=== PATIENT | female | born 1980 | race Caucasian/White ===

== ENCOUNTER 2022-02-23 14:40 | Emergency (ER) | payer OTHER, SELFPAY ==
--- NOTE | 2022-02-23 14:43 | ED.FEMALEGU ---
HPI - Female Genitourinary General Chief complaint: Urogenital-Female Stated complaint: uti complaint Time Seen by Provider: 02/23/22 14:43 Source: patient Mode of arrival: ambulatory Limitations: no limitations History of Present Illness HPI Narrative: Ms. Lr is a 42-year-old female patient presenting to the clinic today with complaints of possible urinary tract infection. She reports she has had pain in the bladder and urinary frequency/urgency x1 week. She has taken 2 days worth of Azo but has discontinued. She reports now that she is starting to have some left-sided flank pain. Denies any vaginal discharge or any new sexual partners. She is currently on control and Lexapro daily. Related Data Home Medications Medication Instructions Recorded Confirmed drospirenone 3 mg-ethinyl 1 tablet PO DAILY 02/23/22 02/23/22 estradiol 0.02 mg tablet (Loryna (28)) escitalopram oxalate 20 mg tablet 20 mg PO DAILY 02/23/22 02/23/22 Allergies Allergy/AdvReac Type Severity Reaction Status Date / Time No Known Allergies Allergy Verified 02/23/22 14:50 Review of Systems Review of Systems: Pertinent positives per HPI. Patient denies any fever, chills, rash, headache, visual changes, dizziness, cough, runny nose, sore throat, shortness of breath, chest pain, palpitations, nausea, vomiting, diarrhea, constipation, abdominal pain PMFSH Comments At the time of my signature, I reviewed and agree with the nursing past medical, surgical, social, and family history. There is no relevant family history pertinent to the patient complaint. Exam Narrative: General: Well-developed, well nourished, in no apparent distress. Head: Normocephalic, atraumatic. Cardio: Regular rate and rhythm, s1 and s2 normal, no murmur appreciated. Resp: Clear to auscultation bilaterally, no rhonchi, rales, wheezing or rubs. Abdomen: Soft, pliable, bowel sounds present in all quadrants,tender to palpation over the suprapubic bladder no organomegly, no CVAT tenderness. Course Course Emergency Course: Portions of this record may have been created with voice recognition software. Level of Care: Express Care Visit Vital Signs Vital signs: Vital signs reviewed MDM - Female Genitourinary MDM Narrative Medical decision making narrative: At the time of visit patient is resting comfortably on the exam table. I suspect the patient has acute cystitis. I will give a prescription for some Macrobid and some Pyridium. Supportive measures were discussed with the patient she voiced understanding of discharge instructions and agrees to treatment plan. Differential Diagnosis Differential diagnosis: Likely urinary tract infection, vaginitis (Pyelonephritis) and cystitis Discharge Plan Discharge Clinical Impression: Acute cystitis Patient Disposition: Home, Self-Care Condition: Stable Instructions: Antibiotic Form, Urinary Tract Infection in Women (ED) Additional Instructions: Urine also shows trace of leukocytes. We will send for culture Take Macrobid twice daily x5 days May take Pyridium as needed for pain-this will cause your urine to turn bright orange. Increase fluids and stay well hydrated Wipe front to back. May use wet wipes. Avoid tub baths If sexually active- pee before and after intercourse. Wear cotton panties Avoid tight clothing up against the genitals Follow up with your PCP in 1 week if symptoms persist. Prescriptions: New nitrofurantoin monohyd/m-cryst [Macrobid] 100 mg capsule 100 mg PO Q12H 5 Days Qty: 10 0RF Rx Instructions: must administer with a meal/food phenazopyridine [Pyridium] 200 mg tablet 200 mg PO TID PRN (Reason: pain) Qty: 6 0RF No Action escitalopram oxalate 20 mg tablet 20 mg PO DAILY drospirenone-ethinyl estradiol [Loryna (28)] 3-0.02 mg tablet 1 tablet PO DAILY Follow-up/Referrals: PHYSICIAN,GRADER TENDER [Primary Care Provider] - Time o
[2022-02-23 14:51] VITALS: BP 129/80; PULSE 87; RESP 18; TEMP 36.5; O2SAT 99
== END 2022-02-23 15:05 | disposition home or self-care (01) ==
PROVIDERS: Emergency Provider Nurse Practitioner Family
DX: N30.00 Acute cystitis without hematuria (principal); F41.9 Anxiety disorder, unspecified; F32.A Depression, unspecified
CPT/HCPCS: 81003; 87086; 99213; G0463

== ENCOUNTER 2022-02-24 17:55 | Emergency (ER) | payer OTHER, SELFPAY ==
[2022-02-24 18:13] VITALS: BP 138/77; PULSE 91; RESP 18; TEMP 37.1; O2SAT 100
--- NOTE | 2022-02-24 18:15 | ED.GENADULT ---
HPI - General Adult General Chief complaint: Upper Respiratory Infection Stated complaint: Sore Throat,Sinus,Headache,Diarrhea Time Seen by Provider: 02/24/22 18:15 Source: patient, RN notes reviewed and old records reviewed Mode of arrival: ambulatory Limitations: no limitations History of Present Illness HPI narrative: 42-year-old female presents to the [facility] with complaints of sinuses, headache, diarrhea and body aches since yesterday. Diagnosed with a UTI yesterday, Started on Macrobid yesterday. Denies fevers. Denies abdominal pain. Related Data Home Medications Medication Instructions Recorded Confirmed drospirenone 3 mg-ethinyl 1 tablet PO DAILY 02/23/22 02/24/22 estradiol 0.02 mg tablet (Loryna (28)) escitalopram oxalate 20 mg tablet 20 mg PO DAILY 02/23/22 02/24/22 Allergies Allergy/AdvReac Type Severity Reaction Status Date / Time No Known Allergies Allergy Verified 02/24/22 18:20 Review of Systems Review of Systems: All systems reviewed & are unremarkable except as noted in HPI and below Constitutional: Constitutional: Reports as per HPI, Reports no additional constitutional complaints, Reports body ache(s), Denies chills, Denies fever(s) and Reports headache(s) Eyes: Eyes: Reports no additional eye complaints ENT: Reports as per HPI and Reports nasal congestion Cardiovascular: Cardiovascular: Reports no additional cardiovascular complaints Respiratory: Respiratory: Reports no additional respiratory complaints Gastrointestinal: Gastrointestinal: Reports no additional gastrointestinal complaints Musculoskeletal: Musculoskeletal: Reports no additional musculoskeletal complaints Integumentary/Breasts: Skin/Breast: Reports system reviewed and no additional complaints, except as docu Neurologic: Reports system reviewed and no additional complaints, except as documented Psychiatric: Psychiatric: Reports no additional psychiatric complaints Allergic/Immunologic: Allergic/Immunologic: Reports no additional allergic/immunologic complaints PMFSH Comments At the time of my signature, I reviewed and agree with the nursing past medical, surgical, social, and family history. There is no relevant family history pertinent to the patient complaint. Exam Const: General: healthy appearing, no acute distress and alert Nutritional Appearance: well nourished Orientation/consciousness: patient oriented x3 Limitations: no limitations HENMT: Head: normal to inspection Ears: external ears normal, TM's normal bilaterally and EAC's normal General nose exam: Normal external nose present and Normal nares present Face and sinus: normal facial exam Mouth: Yes Normal oral and palatal mucosa present, Yes lip normal and Yes moist mucous membranes Throat: posterior oropharynx normal and uvula midline Eyes: General: appearance normal, both eyes and all related structures Conjunctivae: conjunctivae normal Pupils: Equal, round and reactive pupils present Neck: Neck: normal visual inspection, no lymphadenopathy and no meningeal signs Chest: Chest palpation & inspection: normal inspection of the chest Resp: Effort & Inspection: normal respiratory effort and no use of accessory muscles Auscultation: clear to auscultation bilaterally, no crackles, no rales, no rhonchi and no wheezes Cardio: Rate: regular rate Rhythm: regular rhythm GI: GI Palp: Yes Soft to palpation and No Tenderness to palpation present (GI) Back/Spine/Pelvis: Cervical Spine: normal cervical lordosis Thoracic/Lumbar Spine: thoracic and lumbar spine normal to inspection Skin: General skin exam: normal color Rashes: no rashes Wounds: no wounds Neuro: General: patient oriented x3, moves all extremities, no meningeal signs and no focal motor deficits Cranial nerves: Yes Equal, round and reactive pupils present Speech: normal speech Gait exam (Neuro): Normal gait present Extrem: General: normal to inspection, full ROM and capillary refill
[2022-02-24 19:40] LABS: SARS-CoV-2 RNA PCR Negative
== END 2022-02-24 18:49 | disposition home or self-care (01) ==
PROVIDERS: Emergency Provider Nurse Practitioner
DX: J06.9 Acute upper respiratory infection, unspecified (principal); Z20.822 Contact with and (suspected) exposure to COVID-19; F41.9 Anxiety disorder, unspecified; F32.A Depression, unspecified
CPT/HCPCS: 87426; 99213; C9803; G0463; U0003; U0005

== ENCOUNTER 2023-03-05 12:38 | Emergency (ER) | payer OTHER, SELFPAY ==
[2023-03-05 12:44] VITALS: BP 135/71; PULSE 84; RESP 18; TEMP 36.2; O2SAT 100
--- NOTE | 2023-03-05 12:47 | ED.URI ---
HPI - URI/Sore Throat General Chief Complaint: Upper Respiratory Infection Stated Complaint: Cough,Congestion Time Seen by Provider: 03/05/23 12:47 Source: patient Mode of arrival: ambulatory Limitations: no limitations History of Present Illness HPI Narrative: 43 yo F presents with c/o nasal congestion, sinus pressure, cough for 3 wks. Reports some chest congestion. No SOB. Afebrile. Taking mucinex with no relief. 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 Denies wheezing. All systems reviewed and negative except as noted above. Related Data Home Medications Medication Instructions Recorded Confirmed drospirenone 3 mg-ethinyl 1 tablet PO DAILY 02/23/22 03/05/23 estradiol 0.02 mg tablet (Loryna (28)) escitalopram oxalate 20 mg tablet 20 mg PO DAILY 02/23/22 03/05/23 Allergies Allergy/AdvReac Type Severity Reaction Status Date / Time No Known Allergies Allergy Verified 03/05/23 12:42 Review of Systems Review of Systems: CONSTITUTIONAL: Denies fever, chills, or sweats. EYES: Denies visual changes, redness, or discharge. ENT: Reports rhinorrhea, congestion, sinus pressure. Denies sore throat, or otalgia. CARDIOVASCULAR: Denies chest pain, palpitations, or edema. RESPIRATORY: Reports cough. Denies dyspnea. GASTROINTESTINAL: Denies abdominal pain, nausea, vomiting, or diarrhea. GENITOURINARY: Denies dysuria or hematuria. SKIN: Denies rash or itching. MUSCULOSKELETAL: Denies back pain, joint pain, or myalgia. NEUROLOGIC: Denies headache, numbness, or weakness. PSYCHIATRIC: Denies anxiety or depression. All other systems reviewed are negative, except as documented in HPI. PMFSH Comments At time of signature, agree with nursing past medical, surgical, social and family history. There is no relevant family history pertinent to the presenting complaint. Exam Narrative: GENERAL: This is a well-nourished, well-developed patient, in no apparent distress. HEAD: normocephalic, atraumatic. EYES: PERRL. Sclera clear/white. Vision is grossly intact. EARS: External ears normal, auditory canals clear and without drainage, TMs normal without perforation. Hearing grossly intact. NOSE: External nose normal with moderate congestion, erythema and swelling to both nares. bilateral sinus tenderness. THROAT: Mucous membranes moist, posterior pharynx clear. NECK: Neck supple, non-tender without lymphadenopathy, masses or thyromegaly. CARDIOVASCULAR: Regular rate and rhythm without murmurs, gallops, or rubs. RESPIRATORY: Clear to auscultation. Breath sounds equal bilaterally. No wheezes, rales, or rhonchi. SKIN: warm, Dry, intact with no suspicious lesions or rash, good texture and turgor. NEURO: awake, alert, and oriented to person, place and time. There were no obvious focal neurologic abnormalities. EXTREMITIES: No joint tenderness, effusion, or edema noted. Course Course Level of Care: Express Care Visit Vital Signs Vital signs: Vital Signs Temperature 36.2 C L 03/05/23 12:44 Pulse Rate 84 03/05/23 12:44 Respiratory Rate 18 03/05/23 12:44 Blood Pressure 135/71 03/05/23 12:44 Pulse Oximetry 100 03/05/23 12:44 Oxygen Delivery Room Air 03/05/23 12:44 Temperature 36.2 C L 03/05/23 12:44 Pulse Rate 84 03/05/23 12:44 Respiratory Rate 18 03/05/23 12:44 Blood Pressure 135/71 03/05/23 12:44 Pulse Oximetry 100 03/05/23 12:44 Oxygen Delivery Room Air 03/05/23 12:44 Reviewed MDM - URI/Sore Throat MDM Narrative Medical decision making narrative: Will prescribe antibiotic to treat bacterial sinusitis due to duration of symptoms and exam findings. Will treat cough with steroids. Patient is aware of diagnosis, understands and agrees to treatment plan. Anticipatory guidance given. Patient agrees to follow-up as directed and is aware of reasons to seek care at the emergency department. Portions of this record may have been created with voice recognition softw
== END 2023-03-05 12:58 | disposition home or self-care (01) ==
PROVIDERS: Emergency Provider Nurse Practitioner Family
DX: J20.9 Acute bronchitis, unspecified (principal); J30.9 Allergic rhinitis, unspecified; F41.9 Anxiety disorder, unspecified; F32.A Depression, unspecified
CPT/HCPCS: 99213; G0463

== ENCOUNTER 2023-07-15 17:25 | Emergency (ER) | payer OTHER, SELFPAY ==
[2023-07-15 17:37] VITALS: BP 134/89; PULSE 70; RESP 18; TEMP 36.8; O2SAT 100
--- NOTE | 2023-07-15 17:38 | ED.URI ---
HPI - URI/Sore Throat General Chief Complaint: Upper Respiratory Infection Stated Complaint: sorethroat,nasal drainage Time Seen by Provider: 07/15/23 17:38 Source: patient Mode of arrival: ambulatory Limitations: no limitations History of Present Illness HPI Narrative: Susie is a 43-year-old female patient presenting to the clinic today with complaints of sore throat nasal drainage. She reports a few weeks ago she was treated for a sinus infection. States that she finished all the antibiotics at that time. Has a 12 day history of sore throat. Also reports some nasal congestion that has recently started back up. Denies any sinus pain MD elicited complaint: sore throat and nasal congestion Related Data Home Medications Medication Instructions Recorded Confirmed escitalopram oxalate 20 mg tablet 10 mg PO DAILY 02/23/22 07/15/23 drospirenone 3 mg-ethinyl tablet 07/15/23 07/15/23 estradiol 0.02 mg tablet (Loryna (28)) Allergies Allergy/AdvReac Type Severity Reaction Status Date / Time No Known Allergies Allergy Verified 07/15/23 17:40 Review of Systems Review of Systems: Pertinent positives per HPI. Patient denies any fever, chills, rash, headache, visual changes, dizziness, cough, shortness of breath, chest pain, palpitations, nausea, vomiting, diarrhea, constipation, abdominal pain, or any urinary issues. PMFSH Comments At the time of my signature, I reviewed and agree with the nursing past medical, surgical, social, and family history. There is no relevant family history pertinent to the patient complaint. Exam Narrative: General: Well-developed, well nourished, in no apparent distress Head: Normocephalic, atraumatic Eyes: Pupils equally round and reactive to light bilaterally, EOM intact, sclera and conjunctive clear, no discharge, lids normal Ears: TMs intact and clear, ear canals clear, no drainage, grossly hearing normal. Nose: Nares patent, clear nasal discharge, moderate inflammation, no sinus tenderness. Mouth: Oral pharynx without lesions or masses, good dentition, MMM. Neck: Supple, trachea midline, no enlargement of anterior or posterior cervical nodes, no thyroid masses or goiter palpable. Cardio: Regular rate and rhythm, s1 and s2 normal, no murmur appreciated. Resp: Clear to auscultation bilaterally, no rhonchi, rales, wheezing or rubs Course Course Emergency Course: Portions of this record may have been created with voice recognition software. Level of Care: Express Care Visit Vital Signs Vital signs: Vital signs reviewed MDM - URI/Sore Throat MDM Narrative Medical decision making narrative: At the time of visit patient is resting comfortably on the exam table. Patient appears to be nontoxic. Labs: Strep test was negative in the clinic today. We will send for culture. Plan: I suspect patient has URI with pharyngitis. Will send in prescription for prednisone to help with nasal congestion. Supportive measures were discussed with the patient and they voiced understanding discharge instructions and agrees to treatment plan. Return precautions reviewed Differential Diagnosis Differential diagnosis: Likely upper respiratory infection, otitis media, sinusitis, viral infection, bronchitis, influenza, pharyngitis and other (COVID) Discharge Plan Discharge Clinical Impression: Upper respiratory infection Qualifiers: URI type: unspecified viral URI Qualified Code(s): J06.9 - Acute upper respiratory infection, unspecified Pharyngitis Qualifiers: Pharyngitis/tonsillitis etiology: unspecified etiology Qualified Code(s): J02.9 - Acute pharyngitis, unspecified Patient Disposition: Home, Self-Care Condition: Stable Instructions: Antibiotic Form, Pharyngitis (ED), Upper Respiratory Infection (ED) Additional Instructions: Strep test was negative in the clinic today. We will send strep for culture. Take prescription medications only as prescribed-prednisone
== END 2023-07-15 18:03 | disposition home or self-care (01) ==
PROVIDERS: Emergency Provider Nurse Practitioner Family
DX: J06.9 Acute upper respiratory infection, unspecified (principal)
CPT/HCPCS: 87081; 87880; 99213; G0463

== ENCOUNTER 2023-08-05 12:37 | Emergency (ER) | payer OTHER, SELFPAY ==
[2023-08-05 12:57] VITALS: BP 126/80; PULSE 100; RESP 16; TEMP 37.1; O2SAT 100
--- NOTE | 2023-08-05 13:01 | ED.URI ---
HPI - URI/Sore Throat General Chief Complaint: Upper Respiratory Infection Stated Complaint: runny nose,headache,nausea Time Seen by Provider: 08/05/23 13:02 Source: patient, RN notes reviewed and old records reviewed Mode of arrival: ambulatory Limitations: no limitations History of Present Illness HPI Narrative: 43 [facility] complaints of cough congestion with nausea and fevers for the past 24 hours with fevers up to 102F. 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 Patient reports that she has had 1 month of sinus problems with drainage, sinus pressure and frontal headaches. Patient reports that she has been taking Ibuprofen for her fever and discomforts. MD elicited complaint: cough and sore throat Pertinent past history: sinusitis Onset (ago): day(s) (24 hours fever 1 month of sinus congestion and drainage pressure and headaches) Severity: moderate Description of mucous: yellow Able to tolerate fluids by mouth: Yes Treatments prior to arrival: ibuprofen Related Data Home Medications Medication Instructions Recorded Confirmed escitalopram oxalate 20 mg tablet 10 mg PO DAILY 02/23/22 07/15/23 drospirenone 3 mg-ethinyl tablet 07/15/23 07/15/23 estradiol 0.02 mg tablet (Loryna (28)) Allergies Allergy/AdvReac Type Severity Reaction Status Date / Time No Known Allergies Allergy Verified 07/15/23 17:40 Review of Systems Review of Systems: CONSTITUTIONAL: Reports malaise, chills, sweats, or fever. EYES: Denies visual changes, redness, or discharge. ENT: Reports rhinorrhea, congestion, sinus pain, no otalgia and no sore throat. CARDIOVASCULAR: Denies chest pain, palpitations, or edema. RESPIRATORY: Reports cough.? Denies dyspnea. GASTROINTESTINAL: Denies abdominal pain,positive nausea, no vomiting, diarrhea SKIN: Denies rash or itching. MUSCULOSKELETAL: Denies myalgia. NEUROLOGIC: Denies headache. All systems reviewed & are unremarkable except as noted in HPI and below PMFSH Past Medical History Medical History (Updated 08/05/23 @ 14:46 by Deloris Perdue NP) Anxiety and depression Hypertension Social History Social History (Updated 08/05/23 @ 14:55 by Deloris Perdue NP) Smoking status: Never smoker Alcohol intake: current Alcohol use details: social Substance use type: does not use Living arrangements: with family Gender identity (if verbalized by the patient): Female Comments At time of signature, agree with nursing past medical, surgical, social and family history. There is no relevant family history pertinent to the presenting complaint Exam Narrative: GENERAL: Well-appearing, well-nourished, and in no acute distress. HEAD: Normocephalic EYES: PERRLA, conjunctivae clear ENT: Nares clear, turbinates edematous and erythematous, clear yellowish discharge. Mucous membranes moist. TM pearly ruiz with dull light reflex bilaterally; no tragal tenderness. Oropharynx erythematous without lesions. Tonsils not enlarged and without exudate, no drooling, no hoarseness, no trismus, uvula midline.post nasal drainage. NECK: Supple. No lymphadenopathy CHEST: Clear to auscultation, breath sounds equal. No wheezing, rhonchi, rales, or stridor. No respiratory distress, speaks in full sentences. cough,SAO2 100% on room air HEART: Regular rate and rhythm. No murmur heard. SKIN: Warm, dry, no rash. NEURO: Alert and oriented x3. PSYCH: Normal mood and affect Course Course Emergency Course: Patient is aware of diagnosis, understands and agrees to treatment plan.? Anticipatory guidance given.? Patient agrees to follow-up as directed and is aware of reasons to seek care at the emergency department. Portions of this record may have been created with voice recognition software Level of Care: Express Care Visit Vital Signs Vital signs: Vital Signs Temperature
== END 2023-08-05 13:46 | disposition home or self-care (01) ==
PROVIDERS: Emergency Provider Registered Nurse; PCP Family Medicine
DX: J01.40 Acute pansinusitis, unspecified (principal); Z20.822 Contact with and (suspected) exposure to COVID-19; I10 Essential (primary) hypertension; F41.9 Anxiety disorder, unspecified; F32.A Depression, unspecified
CPT/HCPCS: 87426; 87804; 99213; G0463

== ENCOUNTER 2025-03-02 12:06 | Outpatient (CLI) | payer OTHER, SELFPAY ==
--- OUTSIDE RECORDS SUMMARY | 2025-03-01 10:00 | XMS_ITS ---
Author Organization [facility] Address [address] [place] [address] Care Team Providers Care Rehabilitation Assistant Name Role Phone SarabiaTer Primary Care Provider Miranda Herrera Unavailable [phone] Allergies No Known Allergies Reason For Referral Reason PCP Diagnosis 1 Bipolar 2 disorder ( F31.81) Referral Organization [facility] Referring Provider First Name Miranda Referring Provider Last Name Javier Referring Provider Speciality Psychiatry Referred Provider [facility] Referral Priority Routine REASON FOR VISIT New Psych Eval Medications Medication SIG (Take, Route, Frequency, Duration) Notes Start Date End Date Status lamoTRIgine 100 MG 1 tablet Orally Once a day Active Atomoxetine HCl 80 MG 1 capsule in the m orning Orally Once a day Active Manvel Carbonate ER 300 MG 1 tablet at bedtime Orally Once a day Active Caplyta 42 MG 1 capsule Orally Onc e a day Active Social History Tobacco Use: Social History Observation Description Date Details (start date - stop date) Never Smoker NA - NA Tobacco Control (Standard) Question Answer Notes Tobacco use: Nonsmoker Problems Problem Type SNOMED Code ICD Code Onset Dates Problem Status W/U Status Risk Notes Problem Bipolar 2 disorder (67198386) Bipolar 2 disorder (F31.81) Active confirmed Problem Attention deficit hyperactivity disorder (092936600) ADHD (attention deficit hyperactivity disorder), combined type (F90.2) Active confirmed Vital Signs Weight 125 lbs 03/01/2025 Height 5ft 8in in 03/01/2025 BMI 19 kg/m2 03/01/2025 Blood pressure systolic 118 mm Hg 03/01/20 25 Blood pressure diastolic 86 mm Hg 025 Heart Rate 90 /min 03/01/2025 Temperature 98.7 degrees Fahrenheit 03/01/20 25 Encounters Encounter Location Date Provider Diagnosis [facility] [place] [address] 03/01/2025 Miranda Herrera Bipolar 2 disorder F31.81 and ADHD (attention deficit hyperactivity disorder), combined type F90.2 Assessments Encounter Date Diagnosis (ICD Code) Assessment Notes Treatment Notes Treatment Clinical Notes Section Notes 03/01/2025 Bipolar 2 disorder (ICD-10 - F31.81) Continue medications as prescribed - educated patient/guardian on adverse effects, risks and benefits, as well as alternative treatments. Mood stabilizer education - reviewed side effects which may include decreases WBCs, SJS, hepatotoxicity. Possible harm; need to notify provider if planning or experiencing . Continue Lamotrigine as prescribed. Reviewed purpose (mood stability, reduce depression, and help with irritability), benefits, and risks - including sedation, nausea, rash - benign or serious. A serious rash could cause shedding of all skin and even become fatal. Stop taking medication immediately if a rash occurs and seek emergency care. Notify our office as well. If you ever miss 4 or more consecutive days of taking this medication, please let the office know. The prescriber may need to restart this medication at 25 mg daily and titrate up as tolerated. Antipsychotics education - reviewed side effects which may include metabolic syndrome, movement disorders (EPS & TD), sedation, and cardiac arrhythmias. Possible harm; need to notify provider if planning or experiencing . The patient was advice to take lamotrigine as prescribed the patient was instructed not to deviate from the prescription dosages. Stop lamotrigine at the first sign of rash. Patient was insisted to inform office if any of the serious side effect develops. Continue lithium. Take as prescribed. Discussed uses for bipolar depression. Reviewed risks associated like toxicity and water intake, cardiovascular changes. Educated on monitoring weight, kidney function and therapeutic blood trough levels. Manvel lab level ordered. Consume well balanced diet with consistent sodium intake. Consume plenty of fruits/vegetables, healthy grains/whole grains, unsaturated/healthy fats. Maintain hydration. Exercise regularly - Develop an exercise routine. 30 minutes of moderate exercise (walking at a brisk pace) 5 times per week is recommended. You should work hard enough to cause a sweat but still be able to talk with others while exercising. Exercise improves overall health - improves blood pressure and blood sugar, helps control weight, reduces stress, and improves mood. Practice stress reduction techniques, such as guided imagery, journaling, aromatherapy, acupuncture/acupressu re, deep breathing, etc. Practice healthy sleep hygiene - maintain regular routine, no caffeine after 1PM, no exercise 1-2 hours prior to bedtime, keep bedroom dark and cool, no TV or electronics while in bed. Consider melatonin as needed. Consider cognitive behavioral therapy for insomnia (CBT-I). Manage co-morbid conditions as advised. Continue monitoring symptoms - report persistent or worsening/concerning symptoms to the office or go to the ER. For MENTAL HEALTH CRISIS, please reach out to 988 (National Suicide and Crisis Lifeline), 911, go to the emergency department, or contact the [facility] Crisis Unit/Team. Manvel Lab: Have lithium level drawn after taking prescribed dose for 7 consecutive days. You may eat and drink prior to lab draw but do NOT take your lithium until the blood has been collected. You may take your other medications as usual and RESTART the lithium after the blood is drawn. 03/01/2025 ADHD (attention deficit hyperactivity disorder), combined type (ICD-10 - F90.2) Continue Atomoxetine. Discussed healthy habits to help reduce symptoms. Medications as prescribed. Risks vs benefits discussed at length. Possible side effects reviewed. All questions answered. Parent denies any known family history of heart disease. Take as prescribed. Reviewed purpose (improve attention and focus), benefits and risks including high heart rate, high blood pressure, poor appetite, worsening irritability, cyrus, insomnia and anxiety. Patient cautioned that ADHD medications have been associated with an increased risk of cardiovascular disease. Educated on taking medication as prescribed. Medications may need to be tapered down or even stopped based on cardiovascular parameters. Refer to package/pharmacy insert for a full listing of side effects. 03/01/2025 Other The plan was discussed with the patient/guardian. The treatment recommendations were discussed in depth, including pros and cons of each treatment option, reasonable alternates, reasons, potential benefits, potential risks, interactions, and side-effects of all medications, including pertinent Black box warnings and the use of off label medications. The treatment plan was formulated after verbal agreement of the patient/guardian. Patient/guardian were educated about the importance of medication adherence/compliance. Patient/guardian was advised to contact provider if any medication side effects are noted. The Patient/Guardian asked appropriate questions, verbalized understanding of the treatment, and decided to accept the treatment and continue being followed. Alternatives and expected course without treatment were reviewed. The Patient/Guardian is aware of the need to contact the office or return for an earlier appointment if any problems or concerns arise. A safety plan was discussed with the patient/guardian. The patient/guardian has been explained that for emergencies, if new symptoms arise or existing symptoms worsen, suicidal ideation, homicidal ideation, high risk behaviors, manic symptoms, psychotic symptoms, physical symptoms, or any other symptoms that may be dangerous to self or others, the patient is recommended to seek immediate help by calling the [place] crisis line, 911, or going to the nearest emergency room. Patient/guardian verbalized ability and intention to follow with the safety plan. No acute safety concerns. Patient's/guardian's preferences addressed, prefers plan as outlined. Greater than 50% of time spent on coordination and counseling where psychopharmacology as well as psychotherapeutic interventions were discussed along with review of treatments in the past. Encouraged healthy lifestyle choices, including eating healthy foods, taking part in physical activity as tolerated and safe, and maintaining good sleep hygiene. Patient advised to follow up with PCP for chronic medical conditions. No additional questions. May self-administer or be administered own oral medication per [place] Protocols. Provided informed consent with understanding of side effects, risks and benefits as well as alternative treatments as previously discussed and with the above recommended medications and other aspects of the treatment program. Agrees to return sooner if symptoms worsen or suicidal or homicidal ideations occur. Support and education provided concerning illness and treatment plan, risks and benefits, pt verbalized understanding of the same and agreeable Engaged individual in suicide risk assessment. Provided risk based intervention to ensure safety and linkage to ongoing services. Follow up in 2 weeks Plan Of Treatment Medication Medication Name Sig Start Date Stop Date Notes lamoTRIgine 100 MG 1 tablet Orally Once a day Atomoxetine HCl 80 MG 1 capsule in the m orning Orally Once a day Manvel Carbonate ER 300 MG 1 tablet at bedtime Orally Once a day Caplyta 42 MG 1 capsule Orally Once a day Treatment Notes Assessment Notes Bipolar 2 disorder Continue medications as prescribed - educated patient/guardian on adverse effects, risks and benefits, as well as alternative treatments. Mood stabilizer education - reviewed side effects which may include decreases WBCs, SJS, hepatotoxicity. Possible harm; need to notify provider if planning or experiencing . Continue Lamotrigine as prescribed. Reviewed purpose (mood stability, reduce depression, and help with irritability), benefits, and risks - including sedation, nausea, rash - benign or serious. A serious rash could cause shedding of all skin and even become fatal. Stop taking medication immediately if a rash occurs and seek emergency care. Notify our office as well. If you ever miss 4 or more consecutive days of taking this medication, please let the office know. The prescriber may need to restart this medication at 25 mg daily and titrate up as tolerated. Antipsychotics education - reviewed side effects which may include metabolic syndrome, movement disorders (EPS & TD), sedation, and cardiac arrhythmias. Possible harm; need to notify provider if planning or experiencing . The patient was advice to take lamotrigine as prescribed the patient was instructed not to deviate from the prescription dosages. Stop lamotrigine at the first sign of rash. Patient was insisted to inform office if any of the serious side effect develops. Continue lithium. Take as prescribed. Discussed uses for bipolar depression. Reviewed risks associated like toxicity and water intake, cardiovascular changes. Educated on monitoring weight, kidney function and therapeutic blood trough levels. Manvel lab level ordered. Consume well balanced diet with consistent sodium intake. Consume plenty of fruits/vegetables, healthy grains/whole grains, unsaturated/healthy fats. Maintain hydration. Exercise regularly - Develop an exercise routine. 30 minutes of moderate exercise (walking at a brisk pace) 5 times per week is recommended. You should work hard enough to cause a sweat but still be able to talk with others while exercising. Exercise improves overall health - improves blood pressure and blood sugar, helps control weight, reduces stress, and improves mood. Practice stress reduction techniques, such as guided imagery, journaling, aromatherapy, acupuncture/acupressure, deep breathing, etc. Practice healthy sleep hygiene - maintain regular routine, no caffeine after 1PM, no exercise 1-2 hours prior to bedtime, keep bedroom dark and cool, no TV or electronics while in bed. Consider melatonin as needed. Consider cognitive behavioral therapy for insomnia (CBT-I). Manage co-morbid conditions as advised. Continue monitoring symptoms - report persistent or worsening/concerning symptoms to the office or go to the ER. For MENTAL HEALTH CRISIS, please reach out to 988 (National Suicide and Crisis Lifeline), 911, go to the emergency department, or contact the [facility] Crisis Unit/Team. Manvel Lab: Have lithium level drawn after taking prescribed dose for 7 consecutive days. You may eat and drink prior to lab draw but do NOT take your lithium until the blood has been collected. You may take your other medications as usual and RESTART the lithium after the blood is drawn. ADHD (attention deficit hype ractivity disorder), combined type Continue Atomoxetine. Discussed healthy habits to help reduce symptoms. Medications as prescribed. Risks vs benefits discussed at length. Possible side effects reviewed. All questions answered. Parent denies any known family history of heart disease. Take as prescribed. Reviewed purpose (improve attention and focus), benefits and risks including high heart rate, high blood pressure, poor appetite, worsening irritability, cyrus, insomnia and anxiety. Patient cautioned that ADHD medications have been associated with an increased risk of cardiovascular disease. Educated on taking medication as prescribed. Medications may need to be tapered down or even stopped based on cardiovascular parameters. Refer to package/pharmacy insert for a full listing of side effects. Other The plan was discussed with the patient/guardian. The treatment recommendations were discussed in depth, including pros and cons of each treatment option, reasonable alternates, reasons, potential benefits, potential risks, interactions, and side-effects of all medications, including pertinent Black box warnings and the use of off label medications. The treatment plan was formulated after verbal agreement of the patient/guardian. Patient/guardian were educated about the importance of medication adherence/compliance. Patient/guardian was advised to contact provider if any medication side effects are noted. The Patient/Guardian asked appropriate questions, verbalized understanding of the treatment, and decided to accept the treatment and continue being followed. Alternatives and expected course without treatment were reviewed. The Patient/Guardian is aware of the need to contact the office or return for an earlier appointment if any problems or concerns arise. A safety plan was discussed with the patient/guardian. The patient/guardian has been explained that for emergencies, if new symptoms arise or existing symptoms worsen, suicidal ideation, homicidal ideation, high risk behaviors, manic symptoms, psychotic symptoms, physical symptoms, or any other symptoms that may be dangerous to self or others, the patient is recommended to seek immediate help by calling the [place] crisis line, 911, or going to the nearest emergency room. Patient/guardian verbalized ability and intention to follow with the safety plan. No acute safety concerns. Patient's/guardian's preferences addressed, prefers plan as outlined. Greater than 50% of time spent on coordination and counseling where psychopharmacology as well as psychotherapeutic interventions were discussed along with review of treatments in the past. Encouraged healthy lifestyle choices, including eating healthy foods, taking part in physical activity as tolerated and safe, and maintaining good sleep hygiene. Patient advised to follow up with PCP for chronic medical conditions. No additional questions. May self-administer or be administered own oral medication per [place] Protocols. Provided informed consent with understanding of side effects, risks and benefits as well as alternative treatments as previously discussed and with the above recommended medications and other aspects of the treatment program. Agrees to return sooner if symptoms worsen or suicidal or homicidal ideations occur. Support and education provided concerning illness and treatment plan, risks and benefits, pt verbalized understanding of the same and agreeable Engaged individual in suicide risk assessment. Provided risk based intervention to ensure safety and linkage to ongoing services. Follow up in 2 weeks Pending Test Test Name Order Date CBC With Differential/Platelet* 03/01/20 Manvel (Eskalith(R)), Serum 03/01/2025 TSH+Free T4* 03/01/2025 CMP 14 Comprehensive Metabolic Panel* Referrals Referral Date Details 03/01/2025 03/01/2025, PCP Next Appt Details Follow Up: 2 Weeks, Reason: Provider Name:Miranda Herrera, 03/15/2025 01:00:00 PM, [address] [facility], [place], [address], Progress Notes * Susie SNOW BDOB: [id number] (45 yo F)Acc No.[id number]:03/01/2025 Patient: Susie BURGER Provider: Fabián Herrera APN :1980 A ge:45 Y S ex:Female Date:03/01/2025 Address:[address] [place], [place] [id number] Pcp:Tre Sarabia Subjective: * Chief Complaints: * N ew Psych Eval * HPI: I nterim History: Emergency room visit N o. W as hospitalized N o.? D epression Screening: PHQ-9 L ittle interest or pleasure in doing things S everal days, F eeling down, depressed, or hopeless S everal days, T rouble falling or staying asleep, or sleeping too much N ot at all, F eeling tired or having little energy S everal days, P oor appetite or overeating N ot at all, F eeling bad about yourself or that you are a failure, or have let yourself or your family down M ore than half the days, T rouble concentrating on things, such as reading the newspaper or watching television M ore than half the days, M oving or speaking so slowly that other people could have noticed; or the opposite, being so fidgety or restless that you have been moving around a lot more than usual N ot at all, T houghts that you would be better off or of hurting yourself in some way N ot at all, T otal Score 7 , I nterpretation M ild Depression. G AD-7 Screenin. Feeling nervous, anxious, or on edge : , Several days-1.?2. Not being able to stop or control worrying : , Several days-1. 3 . Worrying too much about different things : , Several days-1. 4 . Trouble sleeping/relaxing : , Nearly every day-3. 5 . Being so restless that it is hard to sit still : , Several days-1. 6 . Becoming easily annoyed or irritable : , Not at all-0. 7 . Feeling afraid, as if something awful might happen : , Not at all-0. G AD-7 Score T otal score: 7 . I nterpretation: 5 -9: Mild Anxiety. M ood Disorder Questionnaire 12-10-21: Please answer each question to the best of your ability. Questions P lease answer each question to the best of your ability. H as there ever been a time period when you were not your usual self and..., Y ou felt so good or hyper that other people thought you were not your normal self or you were so hyper that you got into trouble? N o ., Y ou were so irritable that you shouted at people or started fights or arguments? Y es ., Y ou got much less sleep than usual and found that you didn't really miss it? Y es ., Y ou felt much more self-confident than usual? N o ., Y ou were more talkative or spoke much faster than usual? N o ., T houghts raced through your head or you couldn't slow your mind down? Y es ., Y ou were so easily distracted by things around you that you had trouble concentrating or staying on track? Y es ., Y ou had more energy than usual? N o ., Y ou were more active or did many more things than usual? N o ., Y ou were more social or outgoing than usual, for example, you telephoned friends in the middle of the night? N o ., Y ou were more interested in sex than usual? N o ., Y ou did things that were usual for you or that other people might have thought were excessive, foolish, or risky??Yes ., S pending money got you or your family in trouble? Y es ., I f you checked YES to more than one of the above, have several of these ever happened during the same period of time??Yes ., H ow much of a problem did any of these cause you - like being unable to work; having family, money or legal troubles; getting into arguments or fights? M inor problem .. S creening: [place] Suicide Severity Rating Scale (LF) D o you want to initiate with S creener form, 1 . Wish to be : Have you wished you were or wished you could go to sleep and not wake up? N o, 2 . Suicidal Thoughts: Have you actually had any thoughts of killing yourself? N o, 6 . Suicide Behavior Question: Have you ever done anything,started to do anything, or prepared to end your life? N o, I nterpretation: L ow Risk. P [facility] follow-up: Action Plans for Clinical Quality Measures: B reast Cancer Screening: D iscussed need for breast cancer screening. Patient declined., C ervical Cancer Screening: D iscussed need for cervical cancer screening. Patient declined., H IV Screening: Discussed need for HIV screening. Patient declined.. . 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 The patient presents via t elephone encounter to establish care with a new psychiatric provider. Symptoms/CC: I am trying to find a new provider. I have really high moods and really low lows. I could not pay attention in school as a child. ADHD evaluation done in 08/2024. I thought I had anxiety. I had an ADHD test done and I have ADHD. Mood swings and highs and lows. I was diagnosed with ADHD and bipolar 2. I am only on Atomoxetine 80mg now. I was on vyvanse but that was making me more anxious and it made my heart rate and BP go up. The bipolar has been hard to treat. I feel like I have tried all of the medications. Expectations of this visit: Medication Management/ therapy referral M edication management Onset: I have had mental health symptoms my whole life. Frequency: Feel like I was having mood swings all the time over the past 6 months. Stressors/Precipitating factors: S on fell 33 feet off of a tree; Was fired from her job but found a new job at [employer]. Goals: To be able to handle everyday life a little bit better, to be more happy, be a better partner and daughter Strengths: Positivity, caring Past Psychiatric History Past psychiatric history: (dx and onset) ADHD, SYLVAIN, MDD, bipolar 2- patient reports I have definitely been manic multiple times. I used to be very bad at spending money. There have been times I have not been sleeping at all. Inpatient/outpatient treatment: D enies inpatient hospitalization Psychotherapy: denies Past psychiatric medications: M ethylphenidate, Mydayis, Vyvanse, Quelbree, Strattera, Adderall, Auvelity, sertraline, Lamictal, citalopram, Vraylar, lithium, Caplyta, escitalorapm (apathy), Abilify (GI upset), Wellbutrin (side effects at higher doses), fluoxetine (ineffective), Latuda Current psychiatric medications: L ithium ER 300mg, Caplyta 42mg, lamotrigine 100mg, atomoxetine 80mg Medication adherence/efficacy C ompliant with medications Side effects: d enies Suicidal ideations/attempts: D enies Non-suicidal self-injurious behavior: denies Homicidal ideations: d enies Prior violence/aggression: D enies Psychiatric Review of Systems Sleep: (hours per night): 6-8 hours a night Sleeping too much or not enough?(Missed sleep and felt good?) H as had periods of time in the past where she missed sleep and still felt good. Appetite: g ood Binging/restricting/purging: d enies Obsessions: d enies Compulsions: d enies Depression: (0-10): 5 -6/10 Hopeless/Helpless: E ndorses Interest level: p oor Motivation: p oor Concentration/distractible: p oor Energy Level: g ood Anxiety: (0-10): 2-3/10 Worries: A bout children and about her boyfriend Panic Attacks: E ndorses 2 panic attacks for the first time in 15 years about 3 weeks ago Racing thoughts: e ndorses Anger/irritability: E ndorses irritability Trauma: E ndorses Nightmares/flashbacks: D enies Mood swings: e ndorses Suicidal Ideation: d enies Homicidal Ideation: d enies Indiscretion/Inhibition: denies R isk taking/impulsivity: e ndorses Grandiosity: E ndorses Talkativeness:endorses Hallucinations: denies Paranoia: d enies Delusions: d enies Past Medical History Medical diagnoses:denies Medical Concerns: d enies Other Medications: d enies Allergies: d enies Head Injury/ Loss of Consciousness: d enies Seizures: d enies Therapist: Becka murphy currently in therapy- declined referral at this time Primary Care Physician: Gosia rose- will send referral Substance Use: Alcohol: d enies Marijuana: d enies Fentanyl: d enies Cocaine: d enies Meth: d enies Heroin: d enies LSD/PCP: d enies Caffeine: d enies OTC/Prescriptions: PDMP: R eviewed no concerns Family medical History: Cancer runs in the family Family Psychiatric History: Mother: mother- possible bipolar, anxiety, depression. 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 * ROS: P sych ROS: Constitutional A ll systems negative unless indicated otherwise.. E yes D enies. E ars/Nose/Mouth/Throat D enies. R espiratory D enies.?Allergic/Immunologic D enies. C ardiovascular D enies, D enies history of cardiac problems. G I D enies. G U D enies. M usculoskeletal D enies. N eurological D enies. I ntegumentary D enies. E ndocrine D enies. H ematological/Lymphatic D enies, D enies bleeding or bruising. P sych D enies SI/HI/AH/VH. ? * PSYCH ROS2: Depressive symptoms R eports depressed mood,Reports anhedonia, . A dmits E levated mood symptoms. A dmits m ood swings. T houghts of self harm D enies. D enies H omicidal thoughts. H yperactivity A dmits. I nattention A dmits. B ehavior concerns D enies. D isruptive behavior D enies. O bsessive behavior D enies. C ompulsive behavior D enies. P aranoia D enies. D ifficulty concentrating A dmits. A dmits A nxiety. D enies A uditory/visual hallucinations. D enies D elusions. A dmits D epressed mood. D enies D ifficulty sleeping. D enies E ating disorder. D enies L oss of appetite. D enies M ental or Physical abuse. D enies S ubstance abuse. D enies S uicidal thoughts. ? * Medical History: * Surgical History: N o Surgical History documented. * Hospitalization/Major Diagno stic Procedure: N o Hospitalization History. * Family History: F ather: alive. M other: alive. 1 brother(s) - healthy. 1 son(s) , 1 daughter(s) - healthy. . * Social History: P rimary Social History: L iving Arrangement L iving Arrangement: I ndependent Living, I s this a supportive environment? Y es. A lcohol Use A lcohol Use Frequency: M onthly or less. I llicit Substance Usage I llicit Substance Usage: N o. 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 S betsy Question Alcohol Screening H ow may times in the past year have you had (4 for women, or 5 for men) or more drinks in a day? 0 . T obacco Use: T obacco Control (Standard) T obacco use: N onsmoker. M iscellaneous: M ethod of learning P referred method of learning: D iscussion. * Medications: T akingLithium Carbonate ER 300 MG Tablet Extended Release 1 tablet at bedtime Orally Once a day Caplyta 42 MG Capsule 1 capsule Orally Once a day lamoTRIgine 100 MG Tablet 1 tablet Orally Once a day Atomoxetine HCl 80 MG Capsule 1 capsule in the morning Orally Once a day Medication List reviewed and reconciled with the patientTaking Manvel Carbonate ER 300 MG Tablet Extended Release 1 tablet at bedtime Orally Once a day Taking Caplyta 42 MG Capsule 1 capsule Orally Once a day Taking lamoTRIgine 100 MG Tablet 1 tablet Orally Once a day Taking Atomoxetine HCl 80 MG Capsule 1 capsule in the morning Orally Once a day Medication List reviewed and reconciled with the patient * Allergies: N .K.D.A.no[Allergies Verified] Objective: * Vitals: I nitials: krs, Wt:125, Ht: 5ft 8in, BMI:19, BP:118/86, HR:90, Temp:98.7, LMP: 02/2025, Pain scale:0. * Examination: M ental Status Exam: SENSORIUM AND COGNITION A lert, Oriented to Person, Oriented to Place, Oriented to Time, Oriented to Situation. ATTENTION AND CONCENTRATION N o deficits. APPEARANCE Phone interview - unable to determine appearance.. ATTITUDE AND BEHAVIOR C ooperative, Receptive. MEMORY I mmediate, Recent, Remote. EYE CONTACT Phone interview. AFFECT P dhiraj interview-unable to assess. MOOD E uthymic. SPEECH QUANTITY A ppropriate. SPEECH QUALITY A ppropriate volume. THOUGHT PROCESS C oherent and goal directed. THOUGHT CONTENT A ppropriate - WNL, No evidence of delusional content. LANGUAGE A ppropriate- WNL. MOTOR ACTIVITY P dhiraj interview. SUICIDAL IDEATION D enies suicidal ideation. HOMICIDAL IDEATION D enies homicidal ideation. HALLUCINATIONS D enies hallucinations. INSIGHT G ood. JUDGMENT G ood. Assessment: * Assessment: 1. B ipolar 2 disorder - F31.81 (Primary) 2 . A DHD (attention deficit hyperactivity disorder), combined type - F90.2 Plan: * Treatment: 2. A DHD (attention deficit hyperactivity disorder), combined type Continue Atomoxetine HCl Capsule, 80 MG, 1 capsule in the morning, Orally, Once a day. Notes: Continue Atomoxetine. Discussed healthy habits to help reduce symptoms. Medications as prescribed. Risks vs benefits discussed at length. Possible side effects reviewed. All questions answered. Parent denies any known family history of heart disease. Take as prescribed. Reviewed purpose (improve attention and focus), benefits and risks including high heart rate, high blood pressure, poor appetite, worsening irritability, cyrus, insomnia and anxiety. Patient cautioned that ADHD medications have been associated with an increased risk of cardiovascular disease. Educated on taking medication as prescribed. Medications may need to be tapered down or even stopped based on cardiovascular parameters. Refer to package/pharmacy insert for a full listing of side effects. 3. O thers Notes: The plan was discussed with the patient/guardian. The treatment recommendations were discussed in depth, including pros and cons of each treatment option, reasonable alternates, reasons, potential benefits, potential risks, interactions, and side-effects of all medications, including pertinent Black box warnings and the use of off label medications. The treatment plan was formulated after verbal agreement of the patient/guardian. Patient/guardian were educated about the importance of medication adherence/compliance. Patient/guardian was advised to contact provider if any medication side effects are noted. The Patient/Guardian asked appropriate questions, verbalized understanding of the treatment, and decided to accept the treatment and continue being followed. Alternatives and expected course without treatment were reviewed. The Patient/Guardian is aware of the need to contact the office or return for an earlier appointment if any problems or concerns arise. A safety plan was discussed with the patient/guardian. The patient/guardian has been explained that for emergencies, if new symptoms arise or existing symptoms worsen, suicidal ideation, homicidal ideation, high risk behaviors, manic symptoms, psychotic symptoms, physical symptoms, or any other symptoms that may be dangerous to self or others, the patient is recommended to seek immediate help by calling the [facility] crisis line, 911, or going to the nearest emergency room. Patient/guardian verbalized ability and intention to follow with the safety plan. No acute safety concerns. Patient's/guardian's preferences addressed, prefers plan as outlined. Greater than 50% of time spent on coordination and counseling where psychopharmacology as well as psychotherapeutic interventions were discussed along with review of treatments in the past. Encouraged healthy lifestyle choices, including eating healthy foods, taking part in physical activity as tolerated and safe, and maintaining good sleep hygiene. Patient advised to follow up with PCP for chronic medical conditions. No additional questions. May self-administer or be administered own oral medication per [facility] Protocols. Provided informed consent with understanding of side effects, risks and benefits as well as alternative treatments as previously discussed and with the above recommended medications and other aspects of the treatment program. Agrees to return sooner if symptoms worsen or suicidal or homicidal ideations occur. Support and education provided concerning illness and treatment plan, risks and benefits, pt verbalized understanding of the same and agreeable Engaged individual in suicide risk assessment. Provided risk based intervention to ensure safety and linkage to ongoing services. Follow up in 2 weeks * Recommended Wellness and Pre vention Guidelines: * S tatus A lert L ast Done N ext Due A ction Taken N ONCOMPLIANT B reast cancer screening - 0 03/01/2025 - - N ONCOMPLIANT C ervical cancer screening - 0 03/01/2025 - - N ONCOMPLIANT H IV screening - 0 03/01/2025 - - * Procedure Codes: * Preventive Medicine: Counseling: Radha ELI: Elliot atient counselled on the dangers of tobacco use and urged to quit. 0 03/01/2025 .. * Follow Up: 2 Weeks * * Sign off status: Completed true * Provider: Fabián Herrera APN Date: 0 03/01/2025 Generated for Fabio bernal/[place]il[place]/Avrilitting on: 0 03/02/2025 01:09 PM CDT History and Physical Notes * HPI (History of Present Illness) Category Sub-Category Detail Notes Category Not es Interim History Was hospitalized No Emergency room visit No Depression Screening PHQ-9 Little inte rest or pleasure in doing things: Several days Feeling down, depressed, or hopeless: Se veral days Trouble falling or staying asleep, or sl eeping too much: Not at all Feeling tired or having little energy: S everal days Poor appetite or overeating: Not at all Feeling bad about yourself o r that you are a failure, or have let yourself or your family down: More than half the days Trouble concentrating on thi ngs, such as reading the newspaper or watching television: More than half the days Moving or speaking so slowly that other people could have noticed; or the opposite, being so fidgety or restless that you have been moving around a lot more than usual: Not at all Thoughts that you would be b allyssa off or of hurting yourself in some way: Not at all Total Score: 7 Interpretation: Mild Depression SYLVAIN-7 Screening 1. Feeling nervous, anxious, or on edg e :, Several days-1 2. Not being able to stop or control wor rying :, Several days-1 3. Worrying too much about different thi ngs :, Several days-1 4. Trouble sleeping/relaxing :, Nearly e very day-3 5. Being so restless that it is hard to sit still :, Several days-1 6. Becoming easily annoyed or irritable :, Not at all-0 7. Feeling afraid, as if something awful might happen :, Not at all-0 SYLVAIN-7 Score Total score:: 7 Interpretation: 5-9: Mild Anxiety Screening [place] Suicide Sev erity Rating Scale (LF) Do you want to initiate with: Screener form 1. Wish to be : Have you wished you were or wished you could go to sleep and not wake up?: No 2. Suicidal Thoughts: Have you actually had any thoughts of killing yourself?: No 6. Suicide Behavior Question: Have you ever done anything,started to do anything, or prepared to end your life?: No Interpretation:: Low Risk Mood Disorder Questionnaire 12-10-21 Questions Please answer each question to the best of your ability.: Has there ever been a time period when you were not your usual self and... You felt so good or hyper th at other people thought you were not your normal self or you were so hyper that you got into trouble?: No . You were so irritable that y ou shouted at people or started fights or arguments?: Yes . You got much less sleep than usual and found that you didn't really miss it?: Yes . You felt much more self-confident than u sual?: No . You were more talkative or spoke much fa ster than usual?: No . Thoughts raced through your head or you couldn't slow your mind down?: Yes . You were so easily distracte d by things around you that you had trouble concentrating or staying on track?: Yes . You had more energy than usual?: No . You were more active or did many more th ings than usual?: No . You were more social or outg oing than usual, for example, you telephoned friends in the middle of the night?: No . You were more interested in sex than usu al?: No . You did things that were usu al for you or that other people might have thought were excessive, foolish, or risky?: Yes . Spending money got you or your family in trouble?: Yes . If you checked YES to more t vazquez one of the above, have several of these ever happened during the same period of time?: Yes . How much of a problem did an y of these cause you - like being unable to work; having family, money or legal troubles; getting into arguments or fights?: Minor problem . Preventative Health and Wellness follow-up Action Plans for Clinical Quality Measures: Breast Cancer Screening:: Discussed need for breast cancer screening. Patient declined. . Cervical Cancer Screening:: Discussed need for cervical cancer screening. Patient declined. HIV Screening:: Discussed need for HIV s creening. Patient declined. Examination Category Sub-Category Detail Notes Category Not es Mental Status Exam SENSORIUM AND COGNITION Alert , Oriented to Person, Oriented to Place, Oriented to Time, Oriented to Situation ATTENTION AND CONCENTRATION No deficits APPEARANCE Phone interview - un able to determine appearance. ATTITUDE AND BEHAVIOR Cooperative, Medical Insurance Biller tive MEMORY Immediate, Recent, R emote EYE CONTACT Phone interview AFFECT Phone interview-unab le to assess MOOD Euthymic SPEECH QUANTITY Appropriate SPEECH QUALITY Appropriate volume THOUGHT PROCESS Coherent and goal di rected THOUGHT CONTENT Appropriate - WNL, N o evidence of delusional content MOTOR ACTIVITY Phone interview SUICIDAL IDEATION Denies suicidal idea tion HOMICIDAL IDEATION Denies homicidal lamar ation HALLUCINATIONS Denies hallucination s INSIGHT Good JUDGMENT Good LANGUAGE Appropriate- WNL Consultation Request Notes Referral Date Referring Provider Referred Provider Not es 03/01/2025 Miranda Herrera , PCP
[2025-03-02 13:06] LABS: Hematocrit 40.1 % (37.0-47.0); Hemoglobin 13.2 g/dL (12.0-15.0); Immature Granulocyte Percent A 0.1 % (0-0.5); Lymphocytes Absolute Auto 2.45 K/mm3 (0.9-3.2); Mean Corpuscular HGB Conc 32.9 g/dl (32-36); Mean Corpuscular Hemoglobin 31.1 pg (26-34); Mean Corpuscular Volume 94.4 fl (80-100); Nucleated Red Blood Cells Absolute Auto 0.000 K/mm3 (0.0-0.012); Nucleated Red Blood Cells Perc 0.0 % (0.0-0.2); Platelet Count Result 260 k/mm3 (150-375); Red Blood Count 4.25 M/mm3 (4.2-5.4); White Blood Count 7.8 K/mm3 (4.5-10.0)
--- OUTSIDE RECORDS SUMMARY | 2025-03-02 13:09 | XMS_ITS | Patient Health Record ---
Author Organization [facility] Address [address] [place] [address] Care Team Providers Care Clinical Appeals Auditor Name Role Phone SarabiaTre Primary Care Provider [phone] Javier, Miranda Unavailable [phone] Allergies No Known Allergies Reason For Referral Reason PCP Diagnosis 1 Bipolar 2 disorder ( F31.81) Referral Organization [facility] Referring Provider First Name Miranda Referring Provider Last Name Javier Referring Provider Speciality Psychiatry Referred Provider Specialty Behavioral [facility] Referral Priority Routine Medications Medication SIG (Take, Route, Frequency, Duration) Notes Start Date End Date Status lamoTRIgine 100 MG 1 tablet Orally Once a day Active Atomoxetine HCl 80 MG 1 capsule in the m orning Orally Once a day Active [place] Carbonate ER 300 MG 1 tablet at [...] Problem Status W/U Status Risk Notes Problem Attention deficit hyperactivity disorder (269249472) ADHD (attention deficit hyperactivity disorder), combined type (F90.2) Active confirmed Problem Bipolar 2 disorder (42497413) Bipolar 2 disorder (F31.81) Active confirmed Vital Signs Heart Rate 90 /min 03/01/2025 Temperature 98.7 degrees Fahrenheit 03/01/2025 Blood pressure diastolic 86 mm Hg 03/01/2025 Height 5ft 8in in 03/01/2025 Blood pressure systolic 118 mm Hg 03/01/2025 Weight 125 lbs 03/01/2025 BMI 19 kg/m2 03/01/2025 Encounters Encounter Location Date Provider Diagnosis [address] [place] [address] 03/01/2025 Miranda Herrera Bipolar 2 disorder F31.81 and ADHD (attention deficit hyperactivity disorder), combined type F90.2 [facility] [address] [place] [address] 03/01/2025 Miranda Herrera Assessments Encounter Date Diagnosis (ICD Code) Assessment [...] kidney function and therapeutic blood trough levels. [place] lab level ordered. Consume well balanced diet [...] HEALTH CRISIS, please reach out to [phone] ([employer] Suicide and Crisis Lifeline), 911, go to the emergency department, or contact the [facility] Crisis Unit/Team. [place] Lab: Have lithium level drawn after taking [...] to seek immediate help by calling the [place] crisis line, 911, or going to the [...] or be administered own oral medication per [place] Protocols. Provided informed consent with understanding of [...] up in 2 weeks Plan Of Treatment Pending Test Test Name Order Date CBC With Differential/Platelet* 03/01/20 25 [place] (Eskalith(R)), Serum 03/01/2025 TSH+Free T4* 03/01/2025 CMP 14 Comprehensive Metabolic Panel* Next Appt Details Provider Name:Miranda Herrera, 03/15/2025 01:00:00 PM, [address] [facility] [address], [place], [address], Insurance Providers Payer Name Payer Address Payer Phone Subscriber Number Group Number Insured Name Patient Relationship to Insured Coverage Start Date Coverage End Date MEDICAID [address] [place] [phone] [id number] Susie Snow Self - patient is the insured 5 [employer] [address] [place] [phone] [id number] Susie Snow Self - patient is the insured 5 Medical (General) History Medical History History ICD Code bipolar disorder 2 adhd combo type generalized anxiety disorder
--- OUTSIDE RECORDS SUMMARY | 2025-03-02 13:10 | XMS_ITS | Patient Health Record ---
Author Organization [facility] As Blip Address [address] [facility] [address] [place] [address] Care Team Providers Care Gasket Supervisor Name Role Phone Annelise Garcia Unavailable [phone] Az Baeza MD Unavailable Unavailable Sulaiman Decker Unavailable [phone] Payal Sesay Unavailable [phone] Allergies No Known Allergies Results Component Value Reference Range Notes UDT Reviewed date:08/16/2024 02:10:32 PM Interpretation: Performing Lab: Notes/Report: THC N 0 - 50 ng/ml Cocaine N 0 - 300 ng/ml Amphetamine N 0 - 1000 ng/ml Buprenorphine (BUP) N 0 - 10 ng/ml Secobarbital (Bar) N 0 - 300 ng/ml Oxazepam (BZO) N 0 - 300 ng/ml 9-pbyjyzsmjy-7,5-ciboidrt-2,3-diphenylpyrrolidine (NIVIA P) N 0 - 300 ng/ml Methamphetamine (MET) N 0 - 1000 ng/ml Methylenedioxymethamphetamine (MDMA) N 0 - 500 ng/ml Morphine (MOP 300/[id number]) N 0 - 300 ng/ml Methadone (MTD) N 0 - 300 ng/ml Phencyclidine (PCP) N 0 - 25 ng/ml Nortriptyline (TCA) N 0 - 1000 ng/ml Oxycodone N 0 - 300 ng/ml UDT Reviewed date:11/03/2024 12:12:57 PM Interpretation: Performing Lab: Notes/Report: THC n 0 - 50 ng/ml Cocaine n 0 - 300 ng/ml Amphetamine p 0 - 1000 ng/ml Buprenorphine (BUP) n 0 - 10 ng/ml Secobarbital (Bar) n 0 - 300 ng/ml Oxazepam (BZO) n 0 - 300 ng/ml 8-qpeuzzdwxo-5,5-rvuxsngm-0,3-diphenylpyrrolidine (NIVIA P) n 0 - 300 ng/ml Methamphetamine (MET) n 0 - 1000 ng/ml Methylenedioxymethamphetamine (MDMA) n 0 - 500 ng/ml Morphine (MOP 300/[id number]) n 0 - 300 ng/ml Methadone (MTD) n 0 - 300 ng/ml Phencyclidine (PCP) n 0 - 25 ng/ml Nortriptyline (TCA) n 0 - 1000 ng/ml Oxycodone n 0 - 300 ng/ml UDT Reviewed date:12/27/2024 03:27:54 PM Interpretation: Performing Lab: Notes/Report: THC N 0 - 50 ng/ml Cocaine N 0 - 300 ng/ml Amphetamine P 0 - 1000 ng/ml Buprenorphine (BUP) N 0 - 10 ng/ml Secobarbital (Bar) N 0 - 300 ng/ml Oxazepam (BZO) N 0 - 300 ng/ml 0-ykjgxkwvgl-9,2-tvxiiwzo-9,3-diphenylpyrrolidine (NIVIA P) N 0 - 300 ng/ml Methamphetamine (MET) N 0 - 1000 ng/ml Methylenedioxymethamphetamine (MDMA) N 0 - 500 ng/ml Morphine (MOP 300/[id number]) N 0 - 300 ng/ml Methadone (MTD) N 0 - 300 ng/ml Phencyclidine (PCP) N 0 - 25 ng/ml Nortriptyline (TCA) N 0 - 1000 ng/ml Oxycodone N 0 - 300 ng/ml Reason For Referral No Information Medications Medication SIG (Take, Route, Frequency, Duration) Notes Start Date End Date Status Ferrous Fumarate 324 (106 Fe) MG Tablet 1 tablet Orally daily; Duration: 90 days 12/29/2024 Active [place] Carbonate ER 300 MG Tablet Extended Release 1 tablet at bedtime Orally Once a day; Duration: 30 days 02/25/2025 Active lamoTRIgine 100 MG Tablet 1 tablet Orall y Once a day; Duration: 90 days 01/09/2025 Active Atomoxetine HCl 80 MG Capsule 1 capsule in the morning Oral Once a day; Duration: 30 days Active Ondansetron 8 MG Tablet Disintegrating 1 tablet on the tongue and allow to dissolve as needed Orally Once a day 01/02/2025 Active Ferrous Fumarate 150 MG Tablet 1 tablet Orally Three times a Week; Duration: 90 days 12/28/2024 Active B-12 2000 MCG Tablet 1 tablet Orally Onc e a day; Duration: 90 days 12/28/2024 12/23/2025 Active Social History Tobacco Use: Social History Observation Description Date Details (start date - stop date) Unknown Sex Assigned At : Social History Observation Description Sex Assigned At Female Social History Miscellaneous: Social Info Question Answer Notes Safety issues: Are there any firearms in the house? No Social History Social Info Question Answer Notes Household: Marital Status: Single Number of Adults in household: 2 Number of Children in Household: 1 Level of Education: Finished High School Drug/Alcohol: Social Info Question Answer Notes Drugs Have you used drugs other than those for medical reasons in the past 12 months? No AUDIT-C (Standard) Did you have a drink containing alcohol in the past year? Yes How often did you have six or more drinks on one occasion in the past year? Never (0 point) How many drinks did you have on a typical day when you were drinking in the past year? 1 or 2 drinks (0 point) How often did you have a drink containing alcohol in the past year? 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 Problems Problem Type SNOMED Code ICD Code Onset Dates Problem Status W/U Status Risk Notes Problem Bipolar 2 disorder (62064198) Bipolar 2 disorder (F31.81) Active confirmed Problem Generalized anxiety disorder (80390175) SYLVAIN (generalized anxiety disorder) (F41.1) Active confirmed Problem Attention deficit hyperactivity disorder (769775209) ADHD (attention deficit hyperactivity disorder), combined type (F90.2) Active confirmed The results indicate severe ADHD-related cognitive impairment, with strong congruence between self-reports and objective cognitive deficits.Medic ation, structured interventions, and environmental modifications will be son to improving daily function.Regul ar follow-up with a clinician is highly recommended to track progress and adjust interventions as needed. Vital Signs Heart Rate 105 /min 12/27/2024 Blood pressure diastolic 72 mm Hg 12/27/2024 Weight-kg 58.06 kg 12/27/2024 Blood pressure systolic 108 mm Hg 12/27/2024 Weight 128 lbs 12/27/2024 Procedures Procedure Date Ordered Date Performed Result Body Sit e ADHD Testing 08/21/2024 08/23/2024 N/A Encounters Encounter Location Date Provider Diagnosis [address] [address] 08/16/2024 Annelise Garcia MDD (major depressiv e disorder), recurrent episode, mild F33.0 and SYLVAIN (generalized anxiety disorder) F41.[address] [facility] [address] [place] [address] 08/23/2024 Sulaiman Decker Lack of concentratio n R41.840 [address] [address] 08/31/2024 Annelise Garcia ADHD (attention deficit hyperactivity disorder), combined type F90.2 ; SYLVAIN (generalized anxiety disorder) F41.1 ; Encounter for screening for depression Z13.31 ; MDD (major depressive disorder), recurrent episode, mild F33.0 and Encounter for screening for cardiovascular disorders Z13.[address] [address] 10/05/2024 Annelise Kurmeir ADHD (attention deficit hyperactivity disorder), combined type F90.2 ; SYLVAIN (generalized anxiety disorder) F41.1 ; Encounter for screening for depression Z13.31 ; MDD (major depressive disorder), recurrent episode, mild F33.0 and Encounter for screening for cardiovascular disorders Z13.[address] [address] 11/03/2024 Annelise Kurilla ADHD (attention deficit hyperactivity disorder), combined type F90.2 ; SYLVAIN (generalized anxiety disorder) F41.1 ; Encounter for screening for depression Z13.31 ; MDD (major depressive disorder), recurrent episode, mild F33.0 and Encounter for screening for cardiovascular disorders Z13.[address] [address] 11/14/2024 Payal Sesay ADHD (attention deficit hyperactivity disorder), combined type F90.2 ; SYLVAIN (generalized anxiety disorder) F41.1 ; MDD (major depressive disorder), recurrent episode, mild F33.0 and Encounter for screening for cardiovascular disorders Z13.6 [facility] [address] [place] [address] 12/27/2024 Annelise Garcia ADHD (attention deficit hyperactivity disorder), combined type F90.2 ; SYLVAIN (generalized anxiety disorder) F41.1 ; MDD (major depressive disorder), recurrent episode, mild F33.0 and Nicotine use Z72.0 [facility] [address] [place] [address] 11/14/2024 Annelise Garcia [facility] [address] [place] [address] 11/23/2024 Payal Sesay ADHD (attention deficit hyperactivity disorder), combined type F90.2 [facility] [address] [place] [address] 11/24/2024 Payal Sesay Depression, unspecified depression type F32.A [place] [address] [facility] [address] [place] [address] 11/24/2024 Payal Sesay MDD (major depressiv e disorder), recurrent episode, mild F33.0 and Depression, unspecified depression type F32.A [facility] [address] [place] [address] 08/21/2024 Annelise Garcia Difficulty concentrating R41.840 [facility] [address] [place] [address] 08/23/2024 Annelise Garcia [facility] [address] [place] [address] 09/01/2024 Annelise Garcia [facility] [address] [place] [address] 09/01/2024 Annelise Garcia [facility] [address] [place] [address] 09/04/2024 Annelise Garcia ADHD (attention deficit hyperactivity disorder), combined type F90.2 [facility] [address] [place] [address] 09/06/2024 Annelise Garcia SYLVAIN (generalized anxiety disorder) F41.1 and ADHD (attention deficit hyperactivity disorder), combined type F90.2 [facility] [address] [place] [address] 09/06/2024 Annelise Kurilla ADHD (attention deficit hyperactivity disorder), combined type F90.2 [facility], [facility] [address] [place] [address] 09/14/2024 Annelise Kurilla [facility], [facility] [address] [place] [address] 09/22/2024 Annelise Kurilla ADHD (attention deficit hyperactivity disorder), combined type F90.2 [facility], [facility] [address] [place] [address] 09/22/2024 Annelise Kurilla ADHD (attention deficit hyperactivity disorder), combined type F90.2 [facility], [facility] [address] [place] [address] 09/25/2024 Annelise Kurilla [facility], [facility] [address] [place] [address] 09/25/2024 Annelise Kurilla ADHD (attention deficit hyperactivity disorder), combined type F90.2 [facility], [facility] [address] [place] [address] 09/26/2024 Annelise Kurilla ADHD (attention deficit hyperactivity disorder), combined type F90.2 [facility], [facility] [address] [place] [address] 09/27/2024 Annelise Kurilla [facility], [facility] [address] [place] [address] 10/02/2024 Annelise Kurilla [facility], [facility] [address] [place] [address] 10/13/2024 Annelise Kurilla ADHD (attention deficit hyperactivity disorder), combined type F90.2 [facility], [facility] [address] [place] [address] 10/13/2024 Annelise Kurilla [facility], [facility] [address] [place] [address] 10/16/2024 Annelise Kurilla [facility], [facility] [address] [place] [address] 10/16/2024 Annelise Kurilla ADHD (attention deficit hyperactivity disorder), combined type F90.2 [facility], [facility] [address] [place] [address] 10/18/2024 Annelise Garcia SYLVAIN (generalized anxiety disorder) F41.1 [facility], [facility] [address] [place] [address] 10/18/2024 Annelise Garcia [facility], [facility] [address] [place] [address] 11/08/2024 Annelise Garcia [facility], [facility] [address] [place] [address] 11/08/2024 Annelise Garcia [facility], [facility] [address] [place] [address] 11/08/2024 Annelise Garcia [facility], [facility] [address] [place] [address] 11/08/2024 Annelise Garcia [facility], [facility] [address] [place] [address] 11/08/2024 Annelise Garcia [facility], [facility] [address] [place] [address] 11/09/2024 Annelise Garcia [facility], [facility] [address] [place] [address] 11/09/2024 Annelise Garcia [facility], [facility] [address] [place] [address] 11/11/2024 Annelise Garcia [facility], [facility] [address] [place] [address] 11/23/2024 Payal Sesay [facility], [facility] [address] [place] [address] 11/23/2024 Payal Sesay ADHD (attention deficit hyperactivity disorder), combined type F90.2 [facility], [facility] [address] [place] [address] 11/23/2024 Payal Sesay [facility], [facility] [address] [place] [address] 11/24/2024 Payal Sesay [facility], [facility] [address] [place] [address] 11/24/2024 Payal Sesay [facility], [facility] [address] [place] [address] 11/29/2024 Payal Sesay [facility], [facility] [address] [place] [address] 11/29/2024 Payal Sesay [facility], [facility] [address] [place] [address] 12/05/2024 Payal Sesay [facility], [facility] [address] [place] [address] 12/06/2024 Payal Sesay ADHD (attention deficit hyperactivity disorder), combined type F90.2 [facility], [facility] [address] [place] [address] 12/11/2024 Payal Sesay ADHD (attention deficit hyperactivity disorder), combined type F90.2 [facility], [facility] [address] [place] [address] 12/12/2024 Payal Sesay [facility], [facility] [address] [place] [address] 12/14/2024 Annelise Garcia [facility], [facility] [address] [place] [address] 12/14/2024 Annelise Garcia [facility], [facility] [address] [place] [address] 12/14/2024 Annelise Garcia MDD (major depressiv e disorder), recurrent episode, mild F33.0 [facility], [facility] [address] [place] [address] 12/18/2024 Annelise Garcia ADHD (attention deficit hyperactivity disorder), combined type F90.2 [facility], [facility] [address] [place] [address] 12/19/2024 Annelisefaustino Garcia ADHD (attention deficit hyperactivity disorder), combined type F90.2 [facility], [facility] [address] [place] [address] 12/26/2024 Annelise Garcia [facility], [facility] [address] [place] [address] 12/28/2024 Annelise Garcia [facility], [facility] [address] [place] [address] 12/28/2024 Annelise Garcia [facility], [facility] [address] [place] [address] 12/31/2024 Annelisefaustino Garcia [facility], [facility] [address] [place] [address] 01/02/2025 Annelisefaustino Garcia [facility], [facility] [address] [place] [address] 01/04/2025 Annelisefaustino Garcia [facility], [facility] [address] [place] [address] 01/04/2025 Annelisefaustino Garcia [facility], [facility] [address] [place] [address] 01/04/2025 Annelisefaustino Garcia [facility], [facility] [address] [place] [address] 01/04/2025 Annelise Garcia [facility], [facility] [address] [place] [address] 01/04/2025 Annelise Kurilla ADHD (attention deficit hyperactivity disorder), combined type F90.2 [facility], [facility] [address] [place] [address] 01/04/2025 Annelisefaustino Garcia [facility], [facility] [address] [place] [address] 01/04/2025 Annelisefaustino Garcia [facility], [facility] [address] [place] [address] 01/04/2025 Annelisefaustino Garcia [facility], [facility] [address] [place] [address] 01/07/2025 Annelise Garcia MDD (major depressiv e disorder), recurrent episode, mild F33.0 [facility], [facility] [address] [place] [address] 01/09/2025 Annelise Kurmeir [facility], [facility] [address] [place] [address] 01/15/2025 Annelise Kurilla ADHD (attention deficit hyperactivity disorder), combined type F90.2 [facility], [facility] [address] [place] [address] 01/21/2025 Annelise Kurilla [facility], [facility] [address] [place] [address] 01/23/2025 Annelise Kurilla ADHD (attention deficit hyperactivity disorder), combined type F90.2 [facility], [facility] [address] [place] [address] 01/25/2025 Annelise Garcia [facility], [facility] [address] [place] [address] 01/25/2025 Annelise Garcia [facility], [facility] [address] [place] [address] 01/25/2025 Annelise Garcia [facility], [facility] [address] [place] [address] 01/25/2025 Annelise Garcia [facility], [facility] [address] [place] [address] 01/27/2025 Annelise Garcia [facility], [facility] [address] [place] [address] 01/28/2025 Annelise Garcia [facility], [facility] [address] [place] [address] 01/29/2025 Annelise Garcia [facility], [facility] [address] [place] [address] 01/29/2025 Annelise Garcia [facility], [facility] [address] [place] [address] 01/31/2025 Annelise Garcia [facility], [facility] [address] [place] [address] 01/31/2025 Annelise Garcia [facility], [facility] [address] [place] [address] 01/31/2025 Annelise Garcia [facility], [facility] [address] [place] [address] 02/01/2025 Annelise Garcia [facility], [facility] [address] [place] [address] 02/01/2025 Annelise Garcia [facility], [facility] [address] [place] [address] 02/01/2025 Annelise Garcia [facility], [facility] [address] [place] [address] 02/05/2025 Annelise Garcia [facility], [facility] [address] [place] [address] 02/05/2025 Annelise Garcia [facility], [facility] [address] [place] [address] 02/05/2025 Annelise Garcia [facility], [facility] [address] [place] [address] 02/05/2025 Annelise Garcia [facility], [facility] [address] [place] [address] 02/06/2025 Annelise Garcia [facility], [facility] [address] [place] [address] 02/06/2025 Annelisefaustino Garcia [facility], [facility] [address] [place] [address] 02/06/2025 Annelise Garcia [facility], [facility] [address] [place] [address] 02/06/2025 Annelise Garcia [facility], [facility] [address] [place] [address] 02/07/2025 Annelise Garcia [facility], [facility] [address] [place] [address] 02/13/2025 Annelise Garcia [facility], [facility] [address] [place] [address] 02/14/2025 Annelise Garcia [facility], [facility] [address] [place] [address] 02/14/2025 Annelise Garcia [facility], [facility] [address] [place] [address] 02/14/2025 Annelise Garcia [facility], [facility] [address] [place] [address] 02/14/2025 Annelise Garcia [facility], [facility] [address] [place] [address] 02/14/2025 Annelise Garcia [facility], [facility] [address] [place] [address] 02/14/2025 Annelise Garcia [facility], [facility] [address] [place] [address] 02/14/2025 Annelise Garcia [facility], [facility] [address] [place] [address] 02/14/2025 Annelise Garcia [facility], [facility] [address] [place] [address] 02/14/2025 Annelise Garcia [facility], [facility] [address] [place] [address] 02/14/2025 Annelise Garcia [facility], [facility] [address] [place] [address] 02/14/2025 Annelise Garcia [facility], [facility] [address] [place] [address] 02/14/2025 Annelise Garcia [facility], [facility] [address] [place] [address] 02/14/2025 Annelise Garcia [facility], [facility] [address] [place] [address] 02/14/2025 Annelise Garcia [facility], [facility] [address] [place] [address] 02/16/2025 Annelise Garcia [facility], [facility] [address] [place] [address] 02/16/2025 Annelise Garcia ADHD (attention deficit hyperactivity disorder), combined type F90.2 [facility], [facility] [address] [place] [address] 02/16/2025 Annelise Garcia [facility], [facility] [address] [place] [address] 02/16/2025 Annelise Garcia [facility], [facility] [address] [place] [address] 02/16/2025 Annelise Garcia [facility], [facility] [address] [place] [address] 02/16/2025 Annelise Garcia [facility], [facility] [address] [place] [address] 02/16/2025 Annelise Garcia [facility], [facility] [address] [place] [address] 02/16/2025 Annelise Garcia [facility], [facility] [address] [place] [address] 02/16/2025 Annelise Garcia [facility], [facility] [address] [place] [address] 02/16/2025 Annelise Kurmeir [facility], [facility] [address] [place] [address] 02/16/2025 Annelise Garcia [facility], [facility] [address] [place] [address] 02/16/2025 Annelise Kurilla ADHD (attention deficit hyperactivity disorder), combined type F90.2 [facility], [facility] [address] [place] [address] 02/18/2025 Annelisefaustino Garcia [facility], [facility] [address] [place] [address] 02/19/2025 Annelisefaustino Garcia [facility], [facility] [address] [place] [address] 02/19/2025 Annelise Garcia [facility], [facility] [address] [place] [address] 02/19/2025 Annelise Garcia [facility], [facility] [address] [place] [address] 02/20/2025 Annelisefaustino Garcia [facility], [facility] [address] [place] [address] 02/20/2025 Annelise Kurilla ADHD (attention deficit hyperactivity disorder), combined type F90.2 [facility], [facility] [address] [place] [address] 02/20/2025 Annelise Garcia [facility], [facility] [address] [place] [address] 02/20/2025 Annelise Kurilla ADHD (attention deficit hyperactivity disorder), combined type F90.2 [facility], [facility] [address] [place] [address] 02/20/2025 Annelisefaustino Garcia [facility], [facility] [address] [place] [address] 02/20/2025 Annelisefaustino Garcia [facility], [facility] [address] [place] [address] 02/20/2025 Annelisefaustino Garcia [facility], [facility] [address] [place] [address] 02/20/2025 Annelise Garcia [facility], [facility] [address] [place] [address] 02/20/2025 Annelise Garcia [facility], [facility] [address] [place] [address] 02/20/2025 Annelise Garcia [facility], [facility] [address] [place] [address] 02/20/2025 Annelise Garcia [facility], [facility] [address] [place] [address] 02/20/2025 Annelise Garcia [facility], [facility] [address] [place] [address] 02/21/2025 Annelise Garcia [facility], [facility] [address] [place] [address] 02/21/2025 Annelise Garcia [facility], [facility] [address] [place] [address] 02/25/2025 Annelise Garcia [facility], [facility] [address] [place] [address] 02/25/2025 Annelise Garcia [facility], [facility] [address] [place] [address] 02/25/2025 Annelise Garcia [facility], [facility] [address] [place] [address] 02/27/2025 Annelise Garcia [facility], [facility] [address] [place] [address] 02/28/2025 Annelise Garcia 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 terminal 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 manager (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) drug therapy Z79.899 [facility], [facility] [address] [place] [address] 02/28/2025 Annelise Garcia [facility], [facility] [address] [place] [address] 03/01/2025 Annelise Garcia [facility], [facility] [address] [place] [address] 03/01/2025 Annelise Garcia Assessments Encounter Date Diagnosis (ICD Code) Assessment Notes Treatment Notes Treatment Clinical Notes Section Notes 08/16/2024 MDD (major depressive disorder), recurrent episode, mild (ICD-10 - F33.0) 08/21/2024 Difficulty concentrating (ICD-10 - R41.840) Patient reporting symptoms consistent with ADHD-including difficulty maintaining focus and concentration for long periods of time, easily distracted, mind/though process wonders during conversation with others, difficulty completing tasks, trouble sitting still for long periods of time. Reports friends and family notice these symptoms and make her aware of them. Remembers noticing symptoms as early as adolescence. 11/23/2024 ADHD (attention deficit hyperactivity disorder), combined type (ICD-10 - F90.2) 11/23/2024 ADHD (attention deficit hyperactivity disorder), combined type (ICD-10 - F90.2) The results indicate severe ADHD-related cognitive impairment, with strong congruence between self-reports and objective cognitive deficits.Medic ation, structured interventions, and environmental modifications will be son to improving daily function.Regul ar follow-up with a clinician is highly recommended to track progress and adjust interventions as needed. 11/24/2024 Depression, unspecified depression type (ICD-10 - F32.A) 11/24/2024 MDD (major depressive disorder), recurrent episode, mild (ICD-10 - F33.0) 11/03/2024 ADHD (attention deficit hyperactivity disorder), combined type (ICD-10 - F90.2) The results indicate severe ADHD-related cognitive impairment, with strong congruence between self-reports and objective cognitive deficits.Medic ation, structured interventions, and environmental modifications will be son to improving daily function.Regul ar follow-up with a clinician is highly recommended to track progress and adjust interventions as needed. Electronic Prior Authorization was requested for Amphetamine-Dextr oamphet ER 10 MG Capsule Extended Release 24 Hour. Provider can order medication once approval received. 10/13/2024 ADHD (attention deficit hyperactivity disorder), combined type (ICD-10 - F90.2) The results indicate severe ADHD-related cognitive impairment, with strong congruence between self-reports and objective cognitive deficits.Medic ation, structured interventions, and environmental modifications will be son to improving daily function.Regul ar follow-up with a clinician is highly recommended to track progress and adjust interventions as needed. 10/16/2024 ADHD (attention deficit hyperactivity disorder), combined type (ICD-10 - F90.2) The results indicate severe ADHD-related cognitive impairment, with strong congruence between self-reports and objective cognitive deficits.Medic ation, structured interventions, and environmental modifications will be son to improving daily function.Regul ar follow-up with a clinician is highly recommended to track progress and adjust interventions as needed. 10/18/2024 SYLVAIN (generalized anxiety disorder) (ICD-10 - F41.1) 10/05/2024 ADHD (attention deficit hyperactivity disorder), combined type (ICD-10 - F90.2) The results indicate severe ADHD-related cognitive impairment, with strong congruence between self-reports and objective cognitive deficits.Medic ation, structured interventions, and environmental modifications will be son to improving daily function.Regul ar follow-up with a clinician is highly recommended to track progress and adjust interventions as needed. Electronic Prior Authorization was requested for Amphetamine-Dextr oamphet ER 10 MG Capsule Extended Release 24 Hour. Provider can order medication once approval received. 08/23/2024 Lack of concentration (ICD-10 - R41.840) Analysis and Recommendations Summary of Findings Cognitive Markers: 9 markers are outside the typical range, suggesting significant cognitive impairments. ASRS Questionnaire: ADHD is indicative, with Part A (11/24) and Part B (06/01) meeting the threshold for ADHD-related behaviors. Cognitive Performance: Severe deficits in planning and working memory. (Percentiles: 0-2) Extreme inattention: High omission errors (100th percentile). Impulsivity: Faster and less accurate responses. Deficits in response inhibition: High error rate in Double Trouble task (100th percentile). Reaction time irregularities: Low reaction time percentiles (0-1), suggesting cognitive impulsivity or processing speed issues. Interpretation The cognitive test results strongly support the self-reported ADHD symptoms. Severe executive dysfunction (planning, inhibition, sustained attention). High impulsivity contributes to rapid, inaccurate responses. Working memory deficits may impair learning and day-to-day functioning. Recommendations 1. Medical & Clinical Interventions Psychiatric Consultation: Given the congruence between cognitive deficits and self-reporting, stimulant or non-stimulant medication should be considered to improve executive function and attention. Neuropsychological Evaluation: Further testing (if needed) to rule out co-occurring conditions (e.g., anxiety, depression, learning disabilities). 2. Behavioral & Cognitive Strategies Executive Function Coaching: Work on structured routines, task segmentation, and external reminders (e.g., planners, alarms). Cognitive Behavioral Therapy (CBT): Can help manage impulsivity and inattentive symptoms. Mindfulness & Attention Training: Techniques like meditation, breathing exercises, or structured focus sessions may help regulate impulsivity. 3. Environmental & Workplace/School Adjustments Accommodations: Extra time for tasks, reduced distractions, digital tools for task management. Frequent Breaks & Movement-Based Learning: Helps sustain attention. Conclusion The results indicate severe ADHD-related cognitive impairment, with strong congruence between self-reports and objective cognitive deficits. Medication, structured interventions, and environmental modifications will be son to improving daily function. Regular follow-up with a clinician is highly recommended to track progress and adjust interventions as needed. 08/16/2024 SYLVAIN (generalized anxiety disorder) (ICD-10 - F41.1) SSRI/SNRI side effects discussed including but not limited to, gastric upset, nausea, vomiting, diarrhea and/or constipation, weight changes, sexual side effects including loss of libido, increased suicidal thoughts/behavior s in children and young adults, and serotonin syndrome. 08/31/2024 ADHD (attention deficit hyperactivity disorder), combined type (ICD-10 - F90.2) The results indicate severe ADHD-related cognitive impairment, with strong congruence between self-reports and objective cognitive deficits.Medic ation, structured interventions, and environmental modifications will be son to improving daily function.Regul ar follow-up with a clinician is highly recommended to track progress and adjust interventions as needed. Electronic Prior Authorization was requested for Amphetamine-Dextr oamphet ER 10 MG Capsule Extended Release 24 Hour. Provider can order medication once approval received. 09/04/2024 ADHD (attention deficit hyperactivity disorder), combined type (ICD-10 - F90.2) The results indicate severe ADHD-related cognitive impairment, with strong congruence between self-reports and objective cognitive deficits.Medic ation, structured interventions, and environmental modifications will be son to improving daily function.Regul ar follow-up with a clinician is highly recommended to track progress and adjust interventions as needed. Electronic Prior Authorization was requested for Methylphenidate HCl ER (OSM) 36 MG Tablet Extended Release. Provider can order medication once approval received. 09/06/2024 SYLVAIN (generalized anxiety disorder) (ICD-10 - F41.1) 09/06/2024 ADHD (attention deficit hyperactivity disorder), combined type (ICD-10 - F90.2) The results indicate severe ADHD-related cognitive impairment, with strong congruence between self-reports and objective cognitive deficits.Medic ation, structured interventions, and environmental modifications will be son to improving daily function.Regul ar follow-up with a clinician is highly recommended to track progress and adjust interventions as needed. 09/22/2024 ADHD (attention deficit hyperactivity disorder), combined type (ICD-10 - F90.2) The results indicate severe ADHD-related cognitive impairment, with strong congruence between self-reports and objective cognitive deficits.Medic ation, structured interventions, and environmental modifications will be son to improving daily function.Regul ar follow-up with a clinician is highly recommended to track progress and adjust interventions as needed. Electronic Prior Authorization was requested for Lisdexamfetamine Dimesylate 50 MG Capsule. Provider can order medication once approval received. 09/25/2024 ADHD (attention deficit hyperactivity disorder), combined type (ICD-10 - F90.2) The results indicate severe ADHD-related cognitive impairment, with strong congruence between self-reports and objective cognitive deficits.Medic ation, structured interventions, and environmental modifications will be son to improving daily function.Regul ar follow-up with a clinician is highly recommended to track progress and adjust interventions as needed. 09/26/2024 ADHD (attention deficit hyperactivity disorder), combined type (ICD-10 - F90.2) The results indicate severe ADHD-related cognitive impairment, with strong congruence between self-reports and objective cognitive deficits.Medic ation, structured interventions, and environmental modifications will be son to improving daily function.Regul ar follow-up with a clinician is highly recommended to track progress and adjust interventions as needed. 12/06/2024 ADHD (attention deficit hyperactivity disorder), combined type (ICD-10 - F90.2) The results indicate severe ADHD-related cognitive impairment, with strong congruence between self-reports and objective cognitive deficits.Medic ation, structured interventions, and environmental modifications will be son to improving daily function.Regul ar follow-up with a clinician is highly recommended to track progress and adjust interventions as needed. 12/11/2024 ADHD (attention deficit hyperactivity disorder), combined type (ICD-10 - F90.2) The results indicate severe ADHD-related cognitive impairment, with strong congruence between self-reports and objective cognitive deficits.Medic ation, structured interventions, and environmental modifications will be son to improving daily function.Regul ar follow-up with a clinician is highly recommended to track progress and adjust interventions as needed. 12/14/2024 MDD (major depressive disorder), recurrent episode, mild (ICD-10 - F33.0) 12/18/2024 ADHD (attention deficit hyperactivity disorder), combined type (ICD-10 - F90.2) The results indicate severe ADHD-related cognitive impairment, with strong congruence between self-reports and objective cognitive deficits.Medic ation, structured interventions, and environmental modifications will be son to improving daily function.Regul ar follow-up with a clinician is highly recommended to track progress and adjust interventions as needed. 12/19/2024 ADHD (attention deficit hyperactivity disorder), combined type (ICD-10 - F90.2) The results indicate severe ADHD-related cognitive impairment, with strong congruence between self-reports and objective cognitive deficits.Medic ation, structured interventions, and environmental modifications will be son to improving daily function.Regul ar follow-up with a clinician is highly recommended to track progress and adjust interventions as needed. 11/14/2024 ADHD (attention deficit hyperactivity disorder), combined type (ICD-10 - F90.2) The results indicate severe ADHD-related cognitive impairment, with strong congruence between self-reports and objective cognitive deficits.Medic ation, structured interventions, and environmental modifications will be son to improving daily function.Regul ar follow-up with a clinician is highly recommended to track progress and adjust interventions as needed. Electronic Prior Authorization was requested for Qelbree 200 MG Capsule Extended Release 24 Hour. Provider can order medication once approval received. 12/27/2024 ADHD (attention deficit hyperactivity disorder), combined type (ICD-10 - F90.2) The results indicate severe ADHD-related cognitive impairment, with strong congruence between self-reports and objective cognitive deficits.Medic ation, structured interventions, and environmental modifications will be son to improving daily function.Regul ar follow-up with a clinician is highly recommended to track progress and adjust interventions as needed. Electronic Prior Authorization was requested for Amphetamine-Dextr oamphet ER 10 MG Capsule Extended Release 24 Hour. Provider can order medication once approval received. 01/04/2025 ADHD (attention deficit hyperactivity disorder), combined type (ICD-10 - F90.2) The results indicate severe ADHD-related cognitive impairment, with strong congruence between self-reports and objective cognitive deficits.Medic ation, structured interventions, and environmental modifications will be son to improving daily function.Regul ar follow-up with a clinician is highly recommended to track progress and adjust interventions as needed. 01/07/2025 MDD (major depressive disorder), recurrent episode, mild (ICD-10 - F33.0) 01/15/2025 ADHD (attention deficit hyperactivity disorder), combined type (ICD-10 - F90.2) The results indicate severe ADHD-related cognitive impairment, with strong congruence between self-reports and objective cognitive deficits.Medic ation, structured interventions, and environmental modifications will be son to improving daily function.Regul ar follow-up with a clinician is highly recommended to track progress and adjust interventions as needed. 01/23/2025 ADHD (attention deficit hyperactivity disorder), combined type (ICD-10 - F90.2) The results indicate severe ADHD-related cognitive impairment, with strong congruence between self-reports and objective cognitive deficits.Medic ation, structured interventions, and environmental modifications will be son to improving daily function.Regul ar follow-up with a clinician is highly recommended to track progress and adjust interventions as needed. 02/16/2025 ADHD (attention deficit hyperactivity disorder), combined type (ICD-10 - F90.2) The results indicate severe ADHD-related cognitive impairment, with strong congruence between self-reports and objective cognitive deficits.Medic ation, structured interventions, and environmental modifications will be son to improving daily function.Regul ar follow-up with a clinician is highly recommended to track progress and adjust interventions as needed. 02/16/2025 ADHD (attention deficit hyperactivity disorder), combined type (ICD-10 - F90.2) The results indicate severe ADHD-related cognitive impairment, with strong congruence between self-reports and objective cognitive deficits.Medic ation, structured interventions, and environmental modifications will be son to improving daily function.Regul ar follow-up with a clinician is highly recommended to track progress and adjust interventions as needed. 02/20/2025 ADHD (attention deficit hyperactivity disorder), combined type (ICD-10 - F90.2) The results indicate severe ADHD-related cognitive impairment, with strong congruence between self-reports and objective cognitive deficits.Medic ation, structured interventions, and environmental modifications will be son to improving daily function.Regul ar follow-up with a clinician is highly recommended to track progress and adjust interventions as needed. 02/20/2025 ADHD (attention deficit hyperactivity disorder), combined type (ICD-10 - F90.2) The results indicate severe ADHD-related cognitive impairment, with strong congruence between self-reports and objective cognitive deficits.Medic ation, structured interventions, and environmental modifications will be son to improving daily function.Regul ar follow-up with a clinician is highly recommended to track progress and adjust interventions as needed. 02/28/2025 Other senior living (current) drug therapy (ICD-10 - Z79.899) 12/27/2024 SYLVAIN (generalized anxiety disorder) (ICD-10 - F41.1) 08/31/2024 SYLVAIN (generalized anxiety disorder) (ICD-10 - F41.1) SSRI/SNRI side effects discussed including but not limited to, gastric upset, nausea, vomiting, diarrhea and/or constipation, weight changes, sexual side effects including loss of libido, increased suicidal thoughts/behavior s in children and young adults, and serotonin syndrome. 09/22/2024 ADHD (attention deficit hyperactivity disorder), combined type (ICD-10 - F90.2) Electronic Prior Authorization was requested for Vyvanse 50 MG Capsule. Provider can order medication once approval received. 09/06/2024 ADHD (attention deficit hyperactivity disorder), combined type (ICD-10 - F90.2) The results indicate severe ADHD-related cognitive impairment, with strong congruence between self-reports and objective cognitive deficits.Medic ation, structured interventions, and environmental modifications will be son to improving daily function.Regul ar follow-up with a clinician is highly recommended to track progress and adjust interventions as needed. 10/05/2024 SYLVAIN (generalized anxiety disorder) (ICD-10 - F41.1) SSRI/SNRI side effects discussed including but not limited to, gastric upset, nausea, vomiting, diarrhea and/or constipation, weight changes, sexual side effects including loss of libido, increased suicidal thoughts/behavior s in children and young adults, and serotonin syndrome. 11/03/2024 SYLVAIN (generalized anxiety disorder) (ICD-10 - F41.1) 11/14/2024 SYLVAIN (generalized anxiety disorder) (ICD-10 - F41.1) 11/24/2024 Depression, unspecified depression type (ICD-10 - F32.A) 11/03/2024 Encounter for screening for depression (ICD-10 - Z13.31) 10/05/2024 Encounter for screening for depression (ICD-10 - Z13.31) 08/31/2024 MDD (major depressive disorder), recurrent episode, mild (ICD-10 - F33.0) 08/31/2024 Encounter for screening for depression (ICD-10 - Z13.31) 12/27/2024 MDD (major depressive disorder), recurrent episode, mild (ICD-10 - F33.0) 11/14/2024 MDD (major depressive disorder), recurrent episode, mild (ICD-10 - F33.0) 12/27/2024 Nicotine use (ICD-10 - Z72.0) 08/31/2024 Encounter for screening for cardiovascular disorders (ICD-10 - Z13.6) 10/05/2024 MDD (major depressive disorder), recurrent episode, mild (ICD-10 - F33.0) 11/03/2024 MDD (major depressive disorder), recurrent episode, mild (ICD-10 - F33.0) 11/14/2024 Encounter for screening for cardiovascular disorders (ICD-10 - Z13.6) 11/03/2024 Encounter for screening for cardiovascular disorders (ICD-10 - Z13.6) 10/05/2024 Encounter for screening for cardiovascular disorders (ICD-10 - Z13.6) 08/16/2024 Other Continue Auvelity, as this seems to be controlling depressive symptoms. Start sertraline 25mg daily for 8 days then 50mg daily to target anxiety. Patient educated on all medications including potential benefits, side effects, risks. Educated on proper dosing schedule and importance of compliance. -Assessment and treatment plan reviewed with patient. -Compliance with treatment plan importance discussed. -Discussed the risks/benefits of this medication -Discussed medication side effects. -Contact office if symptoms worsen. -Discussed that it can take up to 6-8 weeks to see full therapeutic effects of psychotropic medications. -Crisis prevention hotline 988. 08/31/2024 Other Discontinue Auvelity due to ineffectiveness, increased anxiety. Continue sertraline 50mg daily, will re-evaluate need for dose increase at next apt. ADHD eval reviewed, supportive of dx. -Start Adderall ER 10mg daily for ADHD management. --discussed monitoring for increased anxiety Patient educated on all medications including potential benefits, side effects, risks. Educated on proper dosing schedule and importance of compliance. [place] report checked and consistent with prescription history, no controlled substance prescriptions from other providers. UDT done at last visit-all neg -Assessment and treatment plan reviewed with patient. -Compliance with treatment plan importance discussed. -Discussed the risks/benefits of this medication -Discussed medication side effects. -Contact office if symptoms worsen. -Discussed that it can take up to 6-8 weeks to see full therapeutic effects of psychotropic medications. -Crisis prevention hotline 988. 10/05/2024 Other Continue off of fluoxetine, discontinued about two weeks ago. Increase Abilify to 5mg daily Start lamictal 25mg daily for two weeks then 50mg daily for mood regulation Decrease Adderall ER to 15mg daily, could be activating Patient educated on all medications including potential benefits, side effects, risks. Educated on proper dosing schedule and importance of compliance. [place] report checked and consistent with prescription history, no controlled substance prescriptions from other providers. -Assessment and treatment plan reviewed with patient. -Compliance with treatment plan importance discussed. -Discussed the risks/benefits of this medication -Discussed medication side effects. -Contact office if symptoms worsen. -Discussed that it can take up to 6-8 weeks to see full therapeutic effects of psychotropic medications. -Crisis prevention hotline 988. 11/03/2024 Other Continue Auvelity BID for depression -discussed monitoring for anxiety, impulsive decisions, increased spending Restart Adderall ER at 25mg daily, as appeared to have best response to this medication with afternoon Adderall IR 5mg booster as needed. Patient educated on all medications including potential benefits, side effects, risks. Educated on proper dosing schedule and importance of compliance. [place] report checked and consistent with prescription history, no controlled substance prescriptions from other providers. UDT completed today -Assessment and treatment plan reviewed with patient. -Compliance with treatment plan importance discussed. -Discussed the risks/benefits of this medication -Discussed medication side effects. -Contact office if symptoms worsen. -Discussed that it can take up to 6-8 weeks to see full therapeutic effects of psychotropic medications. -Crisis prevention hotline 988. 11/14/2024 Other Susie Snow, adult female with history of depression, anxiety, and recently diagnosed ADHD, presents with concerns about medication efficacy and desire to focus on ADHD treatment. Attention Deficit Hyperactivity Disorder (ADHD) Assessment: Patient was diagnosed with ADHD within the last year. Cognitive test results strongly support self-reported ADHD symptoms, indicating severe executive dysfunction, high impulsivity contributing to rapid and inaccurate responses, and working memory deficits affecting learning and daily functioning. Patient reports being all over the place and unable to focus, which she believes is driving her depression. Previous trials of Adderall XR 25mg and atomoxetine 100mg were ineffective or suboptimal. Vyvanse 30mg showed some efficacy but was deemed insufficient at that dose. Plan: - Start Qelbree 100mg daily - Authorized for potential increase to 200mg - Take in the morning with a full glass of water - Can be taken with or without food - Informed of potential side effects: headache, fatigue, nausea, decreased appetite, sleep disturbances - Advised to take daily for consistent benefit - Start Vyvanse 50mg daily - Monitor for changes in appetite, weight, and sleep - Be vigilant for emergence of suicidal thoughts or behaviors - Follow up to assess efficacy and titrate medications as needed Major Depressive Disorder Assessment: Patient has a history of depression diagnosed years ago, initially treated with citalopram by Dr. Baeza 5 years ago. Current depression is reported as secondary to untreated ADHD symptoms. Patient denies current suicidal ideation. Plan: - Focus on ADHD treatment as the primary intervention for depressive symptoms - Monitor for recurrence of depressive symptoms Generalized Anxiety Disorder Assessment: Patient has a history of anxiety diagnosed by Dr. Baeza 5 years ago. Currently denies panic attacks or significant anxiety symptoms. Previous GAD16 score was 16 in July. Plan: - Monitor for recurrence of anxiety symptoms Medication Management Assessment: Patient discontinued all medications approximately 10 days ago due to perceived ineffectiveness and side effects. Vraylar and lamotrigine were causing nightmares. Sleep has improved since discontinuation of medications. Plan: - Discontinue previous medication regimen including Vraylar and lamotrigine - Focus on ADHD treatment with Qelbree and Vyvanse as outlined above - Educate patient on the importance of consistent medication adherence - Monitor for return of mood symptoms or sleep disturbances 12/27/2024 Other Discontinue lamictal due to ineffectiveness Start lithium 150mg daily at bedtime for mood stabilization -discussed need for lab monitoring while on lithium Patient educated on all medications including potential benefits, side effects, risks. Educated on proper dosing schedule and importance of compliance. [place] report checked and consistent with prescription history, no controlled substance prescriptions from other providers. UDT compelted today -Assessment and treatment plan reviewed with patient. -Compliance with treatment plan importance discussed. -Discussed the risks/benefits of this medication -Discussed medication side effects. -Contact office if symptoms worsen. -Discussed that it can take up to 6-8 weeks to see full therapeutic effects of psychotropic medications. -Crisis prevention hotline 988. Plan Of Treatment No Information Insurance Providers Payer Name Payer Address Payer Phone Subscriber Number Group Number Insured Name Patient Relationship to Insured Coverage Start Date Coverage End Date [facility] [address] [place] [phone] [id number] Susie Snow Self - patient is the insured Medical (General) History Medical History History ICD Code Past Psychiatric History: An xiety Disorder,Panic Disorder,PTSD,Major Depressive Episode vitamin B12 deficiency: Yes vitamin D deficiency: Yes Surgical History Surgery Date(Month/Year) LEEP procedure
[2025-03-02 13:26] LABS: Alanine Aminotransferase 20 U/L (6-35); Albumin Level 4.9 g/dL (3.5-5.1); Alkaline Phosphatase 52 U/L (38-126); Anion Gap 9 mmol/L (4-12); Aspartate Amino Transferase 30 U/L (14-36); Bilirubin,Total 0.6 mg/dL (0.2-1.3); Blood Urea Nitrogen 15 mg/dL (7-17); Calcium 9.3 mg/dL (8.4-10.2); Carbon Dioxide 26 mmol/L (22-30); Chloride 102 mmol/L (98-107); Estimated Glomerular Filt Rate > 60; Glucose 101 mg/dL (65-110); Potassium 4.5 mmol/L (3.4-5.0); Sodium 137 mmol/L (137-145); Total Protein 8.1 g/dL (6.3-8.2)
[2025-03-02 13:42] LABS: Lithium < 0.2 mmol/L (0.6-1.2)
[2025-03-02 13:48] LABS: Free T4 Free Thyroxine 1.08 ng/dL (0.78-2.19)
[2025-03-02 14:01] LABS: Thyroid Stimulating Hormone 1.910 uIU/mL (0.465-4.680)
== END 2025-03-02 12:07 | disposition home or self-care (01) ==
PROVIDERS: PCP Nurse Practitioner Family
DX: F31.81 Bipolar II disorder (principal)
CPT/HCPCS: 36415; 80053; 80178; 84439; 84443; 85025

== ENCOUNTER 2025-03-13 07:01 | Outpatient (CLI) | payer OTHER, SELFPAY ==
[2025-03-13 07:34] LABS: Hematocrit 37.0 % (37.0-47.0); Hemoglobin 12.0 g/dL (12.0-15.0); Immature Granulocyte Percent A 0.3 % (0-0.5); Lymphocytes Absolute Auto 2.44 K/mm3 (0.9-3.2); Mean Corpuscular HGB Conc 32.4 g/dl (32-36); Mean Corpuscular Hemoglobin 30.4 pg (26-34); Mean Corpuscular Volume 93.7 fl (80-100); Nucleated Red Blood Cells Absolute Auto 0.000 K/mm3 (0.0-0.012); Nucleated Red Blood Cells Perc 0.0 % (0.0-0.2); Platelet Count Result 268 k/mm3 (150-375); Red Blood Count 3.95 M/mm3 (4.2-5.4); White Blood Count 7.2 K/mm3 (4.5-10.0)
[2025-03-13 08:02] LABS: Alanine Aminotransferase 19 U/L (6-35); Albumin Level 4.3 g/dL (3.5-5.1); Alkaline Phosphatase 51 U/L (38-126); Anion Gap 8 mmol/L (4-12); Aspartate Amino Transferase 29 U/L (14-36); Bilirubin,Total 0.6 mg/dL (0.2-1.3); Blood Urea Nitrogen 13 mg/dL (7-17); Calcium 9.0 mg/dL (8.4-10.2); Carbon Dioxide 26 mmol/L (22-30); Chloride 100 mmol/L (98-107); Estimated Glomerular Filt Rate > 60; Glucose 83 mg/dL (65-110); Potassium 3.6 mmol/L (3.4-5.0); Sodium 134 mmol/L (137-145); Total Protein 7.1 g/dL (6.3-8.2)
[2025-03-13 08:39] LABS: Thyroid Stimulating Hormone 2.100 uIU/mL (0.465-4.680)
[2025-03-13 09:15] LABS: Vitamin B12 798.0 pg/mL (239-931)
[2025-03-13 10:23] LABS: Lithium 0.5 mmol/L (0.6-1.2)
== END 2025-03-13 07:02 | disposition home or self-care (01) ==
PROVIDERS: PCP Nurse Practitioner Family
DX: F31.81 Bipolar II disorder (principal); Z79.899 Other long term (current) drug therapy
CPT/HCPCS: 36415; 80053; 80178; 82607; 82746; 84443; 85025

== ENCOUNTER 2025-03-26 17:08 | Outpatient (CLI) | payer OTHER, SELFPAY ==
--- OUTSIDE RECORDS SUMMARY | 2025-03-15 08:00 | XMS_ITS ---
Author Organization [facility] Address [address] [place] [address] Care Team Providers Care Hoist Worker Name Role Phone Miranda Herrera Primary Care Provider REASON FOR VISIT 2 week FU/ Lab results Encounters Encounter Location Date Provider Diagnosis [address] [place] [address] 03/15/2025 Miranda Herrera Plan Of Treatment No Information Progress Notes * Susie THOMAS BDOB: [birth year] (45 yo F)Acc No.[id number]:03/15/2025 UNLOCKED PROGRESS NOTE Patient: Susie BURGER Provider: Fabián Herrera APN :1980 A ge:45 Y S ex:Female Date:03/15/2025 Address:[address] [place], [place] [id number] Subjective: * Chief Complaints: * 1 . 2 week FU/ Lab results. * Medical History: Objective: * Vitals: Assessment: Plan: * Treatment: * * Electronic signature of Flaco Herrera on 03/26/2025 at 05:16 PM CDT Sign off status: Pending * Provider: Fabián Herrera APN Date: 0 03/15/2025 Generated for Cintiai ng/Faantoniog/eTransmitting on: 1 05:16 PM CDT
--- OUTSIDE RECORDS SUMMARY | 2025-03-26 17:16 | XMS_ITS | Patient Health Record ---
Author Organization [facility] [place] Address [address] [facility] [address] [place] [address] Care Team Providers Care Licensed Nuclear Operator Name Role Phone Annelise Garcia Unavailable [phone] Az Baeza MD Unavailable Unavailable Sulaiman Decker Unavailable [phone] Payal Sesay Unavailable [phone] Allergies No Known Allergies Results Component Value Reference Range Notes UDT Reviewed date:11/03/2024 12:12:57 PM Interpretation: Performing Lab: Notes/Report: THC n 0 - 50 ng/ml Cocaine n 0 - 300 ng/ml Amphetamine p 0 - 1000 ng/ml Buprenorphine (BUP) n 0 - 10 ng/ml Secobarbital (Bar) n 0 - 300 ng/ml Oxazepam (BZO) n 0 - 300 ng/ml 2-jxvpazaowt-3,4-rfokphea-8,3-diphenylpyrrolidine (NIVIA P) n 0 - 300 ng/ml Methamphetamine (MET) n 0 - 1000 ng/ml Methylenedioxymethamphetamine (MDMA) n 0 - 500 ng/ml Morphine (MOP 300/[id number]) n 0 - 300 ng/ml Methadone (MTD) n 0 - 300 ng/ml Phencyclidine (PCP) n 0 - 25 ng/ml Nortriptyline (TCA) n 0 - 1000 ng/ml Oxycodone n 0 - 300 ng/ml UDT Reviewed date:08/16/2024 02:10:32 PM Interpretation: Performing Lab: Notes/Report: THC N 0 - 50 ng/ml Cocaine N 0 - 300 ng/ml Amphetamine N 0 - 1000 ng/ml Buprenorphine (BUP) N 0 - 10 ng/ml Secobarbital (Bar) N 0 - 300 ng/ml Oxazepam (BZO) N 0 - 300 ng/ml 6-eiwmrfhvbt-0,5-kjcqhrhj-7,3-diphenylpyrrolidine (NIVIA P) N 0 - 300 ng/ml Methamphetamine (MET) N 0 - 1000 ng/ml Methylenedioxymethamphetamine (MDMA) N 0 - 500 ng/ml Morphine (MOP 300/[id number]) N 0 - 300 ng/ml Methadone (MTD) N 0 - 300 ng/ml Phencyclidine (PCP) N 0 - 25 ng/ml Nortriptyline (TCA) N 0 - 1000 ng/ml Oxycodone N 0 - 300 ng/ml UDT Reviewed date:12/27/2024 03:27:54 PM Interpretation: Performing Lab: Notes/Report: THC N 0 - 50 ng/ml Cocaine N 0 - 300 ng/ml Amphetamine P 0 - 1000 ng/ml Buprenorphine (BUP) N 0 - 10 ng/ml Secobarbital (Bar) N 0 - 300 ng/ml Oxazepam (BZO) N 0 - 300 ng/ml 9-cgxrhdozkc-3,9-yrvieonj-5,3-diphenylpyrrolidine (NIVIA P) N 0 - 300 ng/ml Methamphetamine (MET) N 0 - 1000 ng/ml Methylenedioxymethamphetamine (MDMA) N 0 - 500 ng/ml Morphine (MOP 300/[id number]) N 0 - 300 ng/ml Methadone (MTD) N 0 - 300 ng/ml Phencyclidine (PCP) N 0 - 25 ng/ml Nortriptyline (TCA) N 0 - 1000 ng/ml Oxycodone N 0 - 300 ng/ml Reason For Referral No Information Medications Medication SIG (Take, Route, Frequency, Duration) Notes Start Date End Date Status Ferrous Fumarate 150 MG Tablet 1 tablet Orally Three times a Week; Duration: 90 days 12/28/2024 Unknown B-12 2000 MCG Tablet 1 tablet Orally Onc e a day; Duration: 90 days 12/28/2024 12/23/2025 Unknown Ferrous Fumarate 324 (106 Fe) MG Tablet 1 tablet Orally daily; Duration: 90 days 12/29/2024 Unknown Ondansetron 8 MG Tablet Disintegrating 1 tablet on the tongue and allow to dissolve as needed Orally Once a day 01/02/2025 Unknown lamoTRIgine 100 MG Tablet 1 tablet Orall y Once a day; Duration: 90 days 01/09/2025 Unknown Naranjito Carbonate ER 300 MG Tablet Extended Release 1 tablet at bedtime Orally Once a day; Duration: 30 days 02/25/2025 Unknown Atomoxetine HCl 100 MG Capsule 1 capsule every morning Oral Once a day; Duration: 30 days Unknown Naranjito Carbonate ER 450 MG Tablet Extended Release 2 tablet at bedtime Orally Once a day; Duration: 30 days total daily dose 900mg 03/13/2025 Unknown Social History Tobacco Use: Social History Observation [...] Category Social Info Options Details Miscellaneous: Occupation: [employer] Problems Problem Type SNOMED Code ICD Code Onset Dates Problem Status W/U Status Risk Notes Problem Bipolar 2 disorder (06445628) Bipolar 2 disorder (F31.81) Active confirmed Problem Generalized anxiety disorder (80590967) SYLVAIN (generalized anxiety disorder) (F41.1) Active confirmed Problem Attention deficit hyperactivity disorder (791646216) ADHD (attention deficit hyperactivity disorder), combined type (F90.2) Active confirmed The results indicate severe ADHD-related cognitive impairment, with strong congruence between self-reports and objective cognitive deficits.Medic ation, structured interventions, and environmental modifications will be sno to improving daily function.Regul ar follow-up with [...] N/A Encounters Encounter Location Date Provider Diagnosis [facility] [address] [address] 08/16/2024 Annelisefaustino Garcia MDD (major depressiv e disorder), recurrent episode, mild F33.0 and SYLVAIN (generalized anxiety disorder) F41.1 [facility] [address] [address] 08/23/2024 Sulaimanlori Decker Angelia of concentratio n R41.840 [facility] [address] [address] 08/31/2024 Annelise Kurilla ADHD (attention deficit hyperactivity disorder), combined type F90.2 ; SYLVAIN (generalized anxiety disorder) F41.1 ; Encounter for screening for depression Z13.31 ; MDD (major depressive disorder), recurrent episode, mild F33.0 and Encounter for screening for cardiovascular disorders Z13.6 [facility] [address] [address] 10/05/2024 Annelise Kurilla ADHD (attention deficit hyperactivity disorder), combined type F90.2 ; SYLVAIN (generalized anxiety disorder) F41.1 ; Encounter for screening for depression Z13.31 ; MDD (major depressive disorder), recurrent episode, mild F33.0 and Encounter for screening for cardiovascular disorders Z13.6 [facility] [address] [address] 11/03/2024 Annelise Kurilla ADHD (attention deficit hyperactivity disorder), combined type F90.2 ; SYLVAIN (generalized anxiety disorder) F41.1 ; Encounter for screening for depression Z13.31 ; MDD (major depressive disorder), recurrent episode, mild F33.0 and Encounter for screening for cardiovascular disorders Z13.6 [facility] [address] [address] 11/14/2024 Payal Sesay ADHD (attention deficit hyperactivity disorder), combined type F90.2 ; SYLVAIN (generalized anxiety disorder) F41.1 ; MDD (major depressive disorder), recurrent episode, mild F33.0 and Encounter for screening for cardiovascular disorders Z13.6 [place] [address] [place] [address] 12/27/2024 Annelisefaustino Garcia ADHD (attention deficit hyperactivity disorder), combined type F90.2 ; SYLVAIN (generalized anxiety disorder) F41.1 ; MDD (major depressive disorder), recurrent episode, mild F33.0 and Nicotine use Z72.0 [place] [address] [facility] [address] [place] [address] 11/14/2024 Annelise Garcia [place] [address] [facility] [address] [place] [address] 11/23/2024 Payal Sesay ADHD (attention deficit hyperactivity disorder), combined type F90.2 [place] [address] [facility] [address] [place] [address] 11/24/2024 Payal Sesay Depression, unspecified depression type F32.A [place] [address] [facility] [address] [place] [address] 11/24/2024 Payal Sesay MDD (major depressiv e disorder), recurrent episode, mild F33.0 and Depression, unspecified depression type F32.A [place] [address] [facility] [address] [facility] [address] [place] [address] 08/21/2024 Annelise Garcia Difficulty concentrating R41.840 [place] [address] [facility] [address] [place] [address] 08/23/2024 Annelisefaustino Garcia [place] [address] [place] [address] 09/01/2024 Annelisefaustino Garcia [place] [address] [facility] [address] [place] [address] 09/01/2024 Annelisefaustino Garcia [place] [address] [facility] [address] [place] [address] 09/04/2024 Annelise Radha ADHD (attention deficit hyperactivity disorder), combined type F90.2 [place] [address] [place] [address] 09/06/2024 Annelise Kurilla SYLVAIN (generalized anxiety disorder) F41.1 and ADHD (attention deficit hyperactivity disorder), combined type F90.2 [facility], [facility] [address] [place] [address] 09/06/2024 Annelise Kurilla ADHD (attention deficit hyperactivity disorder), combined type F90.2 [facility], [facility] [address] [place] [address] 09/14/2024 Annelise Kurilla [facility], [facility] [address] [place] [address] 09/22/2024 Annelise Kurilla ADHD (attention deficit hyperactivity disorder), combined type F90.2 [facility], [facility] [address] [place] [address] 09/22/2024 Annelise Kurilla ADHD (attention deficit hyperactivity disorder), combined type F90.2 [facility], [facility] [address] [place] [address] 09/25/2024 Annelise Kurilla [facility], [facility] [address] [place] [address] 09/25/2024 Annelise Kurilla ADHD (attention deficit hyperactivity disorder), combined type F90.2 [facility], [facility] [address] [place] [address] 09/26/2024 Annelise Kurilla ADHD (attention deficit hyperactivity disorder), combined type F90.2 [facility], [facility] [address] [place] [address] 09/27/2024 Annelise Kurilla [facility], [facility] [address] [place] [address] 10/02/2024 Annelise Kurilla [facility], [facility] [address] [place] [address] 10/13/2024 Annelise Kurilla ADHD (attention deficit hyperactivity disorder), combined type F90.2 [facility], [facility] [address] [place] [address] 10/13/2024 Annelise Kurilla [facility], [facility] [address] [place] [address] 10/16/2024 Annelise Kurilla [facility], [facility] [address] [place] [address] 10/16/2024 Annelise Garcia ADHD (attention deficit hyperactivity disorder), combined type F90.2 [facility], [facility] [address] [place] [address] 10/18/2024 Annelise Garcia SYLVAIN (generalized anxiety disorder) F41.1 [facility], [facility] [address] [place] [address] 10/18/2024 Annelise Garcia [facility], [facility] [address] [place] [address] 11/08/2024 Annelise Garcia [facility], [facility] [address] [place] [address] 11/08/2024 Annelise Garcia [facility], [facility] [address] [place] [address] 11/08/2024 Annelise Garcia [facility], [facility] [address] [place] [address] 11/08/2024 Annelise Garcia [facility], [facility] [address] [place] [address] 11/08/2024 Annelise Garcia [facility], [facility] [address] [place] [address] 11/09/2024 Annelise Garcia [facility], [facility] [address] [place] [address] 11/09/2024 Annelise Garcia [facility], [facility] [address] [place] [address] 11/11/2024 Annelise Garcia [facility], [facility] [address] [place] [address] 11/23/2024 Payal Sesay [facility], [facility] [address] [place] [address] 11/23/2024 Payal Sesay ADHD (attention deficit hyperactivity disorder), combined type F90.2 [facility], [facility] [address] [place] [address] 11/23/2024 Payal Sesay [facility], [facility] [address] [place] [address] 11/24/2024 Payal Sesay [facility], [facility] [address] [place] [address] 11/24/2024 Payal Sesay [facility], [facility] [address] [place] [address] 11/29/2024 Payal Sesay [facility], [facility] [address] [place] [address] 11/29/2024 Payal Sesay [facility], [facility] [address] [place] [address] 12/05/2024 Payal Sesay [facility], [facility] [address] [place] [address] 12/06/2024 Payal Sesay ADHD (attention deficit hyperactivity disorder), combined type F90.2 [facility], [facility] [address] [place] [address] 12/11/2024 Payal Sesay ADHD (attention deficit hyperactivity disorder), combined type F90.2 [facility], [facility] [address] [place] [address] 12/12/2024 Payal Sesay [facility], [facility] [address] [place] [address] 12/14/2024 Annelise Garcia [facility], [facility] [address] [place] [address] 12/14/2024 Annelise Garcia [facility], [facility] [address] [place] [address] 12/14/2024 Annelise Garcia MDD (major depressiv e disorder), recurrent episode, mild F33.0 [facility], [facility] [address] [place] [address] 12/18/2024 Annelise Garcia ADHD (attention deficit hyperactivity disorder), combined type F90.2 [facility], [facility] [address] [place] [address] 12/19/2024 Annelisefaustino Garcia ADHD (attention deficit hyperactivity disorder), combined type F90.2 [facility], [facility] [address] [place] [address] 12/26/2024 Annelise Garcia [facility], [facility] [address] [place] [address] 12/28/2024 Annelise Garcia [facility], [facility] [address] [place] [address] 12/28/2024 Annelise Garcia [facility], [facility] [address] [place] [address] 12/31/2024 Annelise Garcia [facility], [facility] [address] [place] [address] 01/02/2025 Annelise Garcia [facility], [facility] [address] [place] [address] 01/04/2025 Annelise Garcia [facility], [facility] [address] [place] [address] 01/04/2025 Annelise Garcia [facility], [facility] [address] [place] [address] 01/04/2025 Annelise Garcia [facility], [facility] [address] [place] [address] 01/04/2025 Annelise Garcia [facility], [facility] [address] [place] [address] 01/04/2025 Annelise Garcia ADHD (attention deficit hyperactivity disorder), combined type F90.2 [facility], [facility] [address] [place] [address] 01/04/2025 Annelise Garcia [facility], [facility] [address] [place] [address] 01/04/2025 Annelise Garcia [facility], [facility] [address] [place] [address] 01/04/2025 Annelise Garcia [facility], [facility] [address] [place] [address] 01/07/2025 Annelise Garcia MDD (major depressiv e disorder), recurrent episode, mild F33.0 [facility], [facility] [address] [place] [address] 01/09/2025 Annelise Garcia [facility], [facility] [address] [place] [address] 01/15/2025 Annelise Garcia ADHD (attention deficit hyperactivity disorder), combined type F90.2 [facility], [facility] [address] [place] [address] 01/21/2025 Annelise Gacria [facility], [facility] [address] [place] [address] 01/23/2025 Annelise Garcia ADHD (attention deficit hyperactivity disorder), combined type F90.2 [facility], [facility] [address] [place] [address] 01/25/2025 Annelise Garcia [facility], [facility] [address] [place] [address] 01/25/2025 Annelise Garcia [facility], [facility] [address] [place] [address] 01/25/2025 Annelise Garcia [facility], [facility] [address] [place] [address] 01/25/2025 Annelise Garcia [facility], [facility] [address] [place] [address] 01/27/2025 Annelise Garcia [facility], [facility] [address] [place] [address] 01/28/2025 Annelise Garcia [facility], [facility] [address] [place] [address] 01/29/2025 Annelise Garcia [facility], [facility] [address] [place] [address] 01/29/2025 Annelise Garcia [facility], [facility] [address] [place] [address] 01/31/2025 Annelise Garcia [facility], [facility] [address] [place] [address] 01/31/2025 Annelise Garcia [facility], [facility] [address] [place] [address] 01/31/2025 Annelise Garcia [facility], [facility] [address] [place] [address] 02/01/2025 Annelise Garcia [facility], [facility] [address] [place] [address] 02/01/2025 Annelise Garcia [facility], [facility] [address] [place] [address] 02/01/2025 Annelise Garcia [facility], [facility] [address] [place] [address] 02/05/2025 Annelisefaustino Garcia [facility], [facility] [address] [place] [address] 02/05/2025 Annelisefaustino Garcia [facility], [facility] [address] [place] [address] 02/05/2025 Annelise Garcia [facility], [facility] [address] [place] [address] 02/05/2025 Annelisefaustino Garcia [facility], [facility] [address] [place] [address] 02/06/2025 Annelisefaustino Garcia [facility], [facility] [address] [place] [address] 02/06/2025 Annelise Garcia [facility], [facility] [address] [place] [address] 02/06/2025 Annelise Garcia [facility], [facility] [address] [place] [address] 02/06/2025 Annelise Garcia [facility], [facility] [address] [place] [address] 02/07/2025 Annelisefaustino Garcia [facility], [facility] [address] [place] [address] 02/13/2025 Annelise Garcia [facility], [facility] [address] [place] [address] 02/14/2025 Annelise Garcia [facility], [facility] [address] [place] [address] 02/14/2025 Annelise Garcia [facility], [facility] [address] [place] [address] 02/14/2025 Annelisefaustino Garcia [facility], [facility] [address] [place] [address] 02/14/2025 Annelise Garcia [facility], [facility] [address] [place] [address] 02/14/2025 Annelise Garcia [facility], [facility] [address] [place] [address] 02/14/2025 Annelise Garcia [facility], [facility] [address] [place] [address] 02/14/2025 Annelise Garcia [facility], [facility] [address] [place] [address] 02/14/2025 Annelise Garcia [facility], [facility] [address] [place] [address] 02/14/2025 Annelise Garcia [facility], [facility] [address] [place] [address] 02/14/2025 Annelise Garcia [facility], [facility] [address] [place] [address] 02/14/2025 Annelise Garcia [facility], [facility] [address] [place] [address] 02/14/2025 Annelise Garcia [facility], [facility] [address] [place] [address] 02/14/2025 Annelise Garcia [facility], [facility] [address] [place] [address] 02/14/2025 Annelise Garcia [facility], [facility] [address] [place] [address] 02/16/2025 Annelise Garcia [facility], [facility] [address] [place] [address] 02/16/2025 Annelise Garcia ADHD (attention deficit hyperactivity disorder), combined type F90.2 [facility], [facility] [address] [place] [address] 02/16/2025 Annelise Garcia [facility], [facility] [address] [place] [address] 02/16/2025 Annelise Garcia [facility], [facility] [address] [place] [address] 02/16/2025 Annelise Garcia [facility], [facility] [address] [place] [address] 02/16/2025 Annelise Garcia [facility], [facility] [facility] [address] [place] [address] 02/16/2025 Annelise Garcia [facility], [facility] [address] [place] [address] 02/16/2025 Annelise Garcia [facility], [facility] [address] [place] [address] 02/16/2025 Annelisefaustino Garcia [facility], [facility] [address] [place] [address] 02/16/2025 Annelisefaustino Garcia [facility], [facility] [address] [place] [address] 02/16/2025 Annelisefaustino Garcia [facility], [facility] [address] [place] [address] 02/16/2025 Annelise Kurilla ADHD (attention deficit hyperactivity disorder), combined type F90.2 [facility], [facility] [address] [place] [address] 02/18/2025 Annelise Garcia [facility], [facility] [address] [place] [address] 02/19/2025 Annelise Garcia [facility], [facility] [address] [place] [address] 02/19/2025 Annelise Garcia [facility], [facility] [address] [place] [address] 02/19/2025 Annelisefaustino Garcia [facility], [facility] [address] [place] [address] 02/20/2025 Annelisefaustino Garcia [facility], [facility] [address] [place] [address] 02/20/2025 Annelise Kurilla ADHD (attention deficit hyperactivity disorder), combined type F90.2 [facility], [facility] [address] [place] [address] 02/20/2025 Annelisefaustino Garcia [facility], [facility] [address] [place] [address] 02/20/2025 Annelise Kurilla ADHD (attention deficit hyperactivity disorder), combined type F90.2 [facility], [facility] [address] [place] [address] 02/20/2025 Annelise Garcia [facility], [facility] [address] [place] [address] 02/20/2025 Annelisefaustino Garcia [facility], [facility] [address] [place] [address] 02/20/2025 Annelise Garcia [facility], [facility] [address] [place] [address] 02/20/2025 Annelisefaustino Garcia [facility], [facility] [address] [place] [address] 02/20/2025 Annelise Garcia [facility], [facility] [address] [place] [address] 02/20/2025 Annelise Garcia [facility], [facility] [address] [place] [address] 02/20/2025 Annelise Garcia [facility], [facility] [address] [place] [address] 02/20/2025 Annelisefaustino Garcia [facility], [facility] [address] [place] [address] 02/21/2025 Annelise Garcia [facility], [facility] [address] [place] [address] 02/21/2025 Annelise Garcia [facility], [facility] [address] [place] [address] 02/25/2025 Annelise Garcia [facility], [facility] [address] [place] [address] 02/25/2025 Annelise Garcia [facility], [facility] [address] [place] [address] 02/25/2025 Annelise Garcia [facility], [facility] [address] [place] [address] 02/27/2025 Annelise Garcia [facility], [facility] [address] [place] [address] 02/28/2025 Annelise Garcia 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) drug 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 Z79.899 [facility], [facility] [address] [place] [address] 02/28/2025 Annelise Garcia [facility], [facility] [address] [place] [address] 03/01/2025 Annelise Garcia [facility], [facility] [address] [place] [address] 03/01/2025 Annelise Garcia [facility], [facility] [address] [place] [address] 03/08/2025 Annelise Garcia ADHD (attention deficit hyperactivity disorder), combined type F90.2 [facility], [facility] [address] [place] [address] 03/09/2025 Annelise Garcia [facility], [facility] [address] [place] [address] 03/09/2025 Annelise Garcia [facility], [facility] [address] [place] [address] 03/09/2025 Annelise Garcia [facility], [facility] [address] [place] [address] 03/09/2025 Annelise Garcia [facility], [facility] [address] [place] [address] 03/13/2025 Annelise Garcia [facility], [facility] [address] [place] [address] 03/13/2025 Annelise Garcia [facility], [facility] [address] [place] [address] 03/13/2025 Annelise Garcia [facility], [facility] [address] [place] [address] 03/13/2025 Annelise Garcia [facility], [facility] [address] [place] [address] 03/13/2025 Annelise Garcia [facility], [facility] [address] [place] [address] 03/13/2025 Annelise Garcia Other jail (current) drug therapy Z79.899 [facility], [facility] [address] [place] [address] 03/14/2025 Annelise Garcia [facility], [facility] [address] [place] [address] 03/18/2025 Annelise Garcia [facility], [facility] [address] [place] [address] 03/19/2025 Annelise Garcia [facility], [facility] [address] [place] [address] 03/19/2025 Annelise Garcia [facility], [facility] [address] [place] [address] 03/19/2025 Anneilse Garcia [facility], [facility] [address] [place] [address] 03/19/2025 Annelise Radha [facility], [facility] [address] [place] [address] 03/19/2025 Annelisefaustino Garciameir [facility], [facility] [address] [place] [address] 03/19/2025 Annelise Garcia Assessments Encounter Date Diagnosis (ICD [...] Questionnaire: ADHD is indicative, with Part A (/) and Part B (06/01) meeting the threshold [...] and adjust interventions as needed. 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 -Crisis prevention hotline 268. Plan Of Treatment Future Test Test Name Order Date [place] (Eskalith), Serum 03/21/2025 Insurance Providers Payer Name Payer Address Payer Phone Subscriber Number Group Number Insured Name Patient Relationship to Insured Coverage Start Date Coverage End Date [facility] [address] [place] [phone] [id number] Susie Snow Self - patient is the insured Medical (General) History Medical History History ICD Code Past Psychiatric History: An xiety Disorder,Panic Disorder,PTSD,Major Depressive Episode vitamin B12 deficiency: Yes vitamin D deficiency: Yes Surgical History Surgery Date(Month/Year) LEEP procedure
--- OUTSIDE RECORDS SUMMARY | 2025-03-26 17:16 | XMS_ITS | Patient Health Record ---
Author Organization [facility] Address [address] [place] [address] Care Team Providers Care Senior Storage Administrator Name Role Phone Miranda Herrera Primary Care Provider Tk SterlingKayla Unavailable [phone] Allergies No Known Allergies Reason For Referral Reason PCP Diagnosis 1 Bipolar 2 disorder ( F31.81) Referral Organization [facility] Referring Provider First Name Miranda Referring Provider Last Name Javier Referring Provider Speciality Psychiatry Referred Provider Specialty Behavioral [facility] Clinical Notes Shalonda Cervantes 03/08/2025 02:21:47 PM >HN called the client and spoke to her briefly. The client was at work and stated she would try calling tomorrow to get more information when she is on her lunch break regarding PCP. Client also mention something regarding a prescription. HN will see if there is something in the computer regarding this. TE sent to the nurse for Purnima Herrera to see if they have a message regarding this. Referral Priority Routine Medications Medication SIG (Take, Route, Frequency, Duration) Notes Start Date End Date Status Vraylar 1.5 MG 1 capsule Orally quinten ry other day 03/22/2025 Active Atomoxetine HCl 100 MG 1 capsule in the morning Orally Once a day; Duration: 30 days Active lamoTRIgine 100 MG 1 tablet Orally Once a day; Duration: 30 days Active Linzess Active [place] Carbonate ER 300 MG 30 Orally On ce a day; Duration: 14 days Active Caplyta 21 MG 1 capsule Orally Onc e a day; Duration: 14 days Active Cariprazine HCl 1.5 MG 1 capsule Orally every other day 03/22/2025 Active Social History Tobacco Use: Social History Observation Description Date Details (start date - stop date) Never Smoker NA - NA PRAPARE Question Answer Notes Date Completed/Updated: 03/08/2025 What is your current housing situation? I have h ousing Are you worried about losing your housing? No What is the highest level of school that you have finished? 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 Check all that apply I do not have problems meeting my needs Has lack of transportation k ept you from medical appointments, meetings, work or from getting things needed for daily living? No How often do you see or talk to people that you care about and feel close to? (For example: talking to friends on the phone, visiting friends or family, going to muslim or club meetings) 3 to 5 times a week How stressed are you? Stress is when someone feels tense, nervous, anxious, or can\t sleep at night because their mind is troubled Somewhat Are you a refugee? I choose not to answer this q uestion What country are you from? [place] Do you feel physically and e motionally safe where you currently live? Yes In the past year, have you b een afraid of your partner or ex-partner? Unsure PRAPARE Score: 3 Tobacco Control (Standard) Question Answer Notes Tobacco use: Nonsmoker Problems Problem Type SNOMED Code ICD Code Onset Dates Problem Status W/U Status Risk Notes Problem Attention deficit hyperactivity disorder (132075108) ADHD (attention deficit hyperactivity disorder), combined type (F90.2) Active confirmed Problem Bipolar 2 disorder (13268888) Bipolar 2 disorder (F31.81) Active confirmed Vital Signs Heart Rate 90 /min 03/01/2025 Temperature 98.7 degrees Fahrenheit 03/01/2025 Blood pressure diastolic 86 mm Hg 03/01/2025 Height 5ft 8in in 03/01/2025 Blood pressure systolic 118 mm Hg 03/01/2025 Weight 125 lbs 03/01/2025 BMI 19 kg/m2 03/01/2025 Encounters Encounter Location Date Provider Diagnosis [address] [place] [address] 03/01/2025 Miranda Javier Bipolar 2 disorder F31.81 and ADHD (attention deficit hyperactivity disorder), combined type F90.[address] [address] 03/08/2025 Patricio Sterling [address] [address] 03/22/2025 Miranda Javier Bipolar 2 disorder F31.81 and ADHD (attention deficit hyperactivity disorder), combined type F90.2 [facility] [address] [place] [address] 03/01/2025 Miranda Javier [address] [address] 03/06/2025 Miranda Javier Bipolar 2 disorder F31.[address] [address] 03/08/2025 Miranda Javier ADHD (attention deficit hyperactivity disorder), combined type F90.[address] [address] 03/15/2025 Miranda Javier Bipolar 2 disorder F31.[address] [address] 03/21/2025 Miranda Javier [address] [address] 03/22/2025 Miranda Javier ADHD (attention deficit hyperactivity disorder), combined type F90.2 and Bipolar 2 disorder F31.81 [facility] [address] [place] [address] 03/22/2025 Miranda Javier [address] [address] 03/22/2025 Miranda Javier Assessments Encounter Date Diagnosis (ICD Code) Assessment [...] kidney function and therapeutic blood trough levels. [place] lab level ordered. Consume well balanced diet [...] to the emergency department, or contact the [facility] Crisis Unit/Team. [place] Lab: Have lithium level drawn after taking prescribed dose for 7 consecutive days. You may eat and drink prior to lab draw but do NOT take your lithium until the blood has been collected. You may take your other medications as usual and RESTART the lithium after the blood is drawn. 03/06/2025 Bipolar 2 disorder (ICD-10 - F31.81) 03/08/2025 ADHD (attention deficit hyperactivity disorder), combined type (ICD-10 - F90.2) 03/15/2025 Bipolar 2 disorder (ICD-10 - F31.81) 03/22/2025 Bipolar 2 disorder (ICD-10 - F31.81) Antipsychotics education - reviewed side effects which may include metabolic syndrome, movement disorders (EPS & TD), sedation, and cardiac arrhythmias. Possible harm; need to notify provider if planning or experiencing . Plan is to taper off lithium due to constipation. Patient educated to slowly taper lithium, decreasing by 50-100mg each week. Plan to cross taper from Caplyta to Vraylar. Take lamotrigine as prescribed. Reviewed purpose (mood stability, reduce [...] mg daily and titrate up as tolerated. Educated patient on the importance of taking medications as prescribed and regular follow up visits. 03/22/2025 ADHD (attention deficit hyperactivity disorder), combined type (ICD-10 - F90.2) 03/22/2025 Bipolar 2 disorder (ICD-10 - F31.81) 03/01/2025 ADHD (attention deficit hyperactivity disorder), combined [...] for a full listing of side effects. 03/22/2025 ADHD (attention deficit hyperactivity disorder), combined type (ICD-10 - F90.2) Take as prescribed. Reviewed purpose (improve attention and focus and decrease eating binges), benefits, and risks including high heart rate, high blood pressure, and increased anxiety. Patient cautioned that ADHD medications have been associated with an increased risk of cardiovascular disease, especially hypertension and arterial disease. Medications may need to be tapered down [...] to seek immediate help by calling the [place] crisis line, 911, or going to the [...] or be administered own oral medication per [place] Protocols. Provided informed consent with understanding of [...] ongoing services. Follow up in 2 weeks 03/08/2025 Other Referral Management Liaison met with Susie Snow to assist in working on building skills to help the consumer gain confidence in their independent living skills. The advertising writer practiced with Susie Yeboah implementing problem solving skills to help facilitate exploration of options to improve mental and physical health. The advertising writer encouraged and engaged in critical thinking of how to use natural resources and coping skills to help manage symptoms in the moment. Referral Management Liaison also worked on modeling and practicing with the consumer healthy coping skills to reduce stress and anxiety including taking medications as prescribed, attending all scheduled appointments, attending all labs and out patient services, and obtaining a PCP for more support with her medical needs. 03/22/2025 Other The plan was discussed with the [...] to seek immediate help by calling the [place] crisis line, 911, or going to the [...] or be administered own oral medication per [place] Protocols. Provided informed consent with understanding of [...] Test Name Order Date CBC With Differential/Platelet* 03/15/20 CBC With Differential/Platelet* 03/01/20 [place] (Eskalith(R)), Serum 03/15/2025 [place] (Eskalith(R)), Serum 03/07/2025 [place] (Eskalith(R)), Serum 03/01/2025 TSH+Free T4* 03/15/2025 TSH+Free T4* 03/01/2025 CMP 14 Comprehensive Metabolic Panel* [facility] 14 Comprehensive Metabolic Panel* Insurance Providers Payer Name Payer Address Payer Phone Subscriber Number Group Number Insured Name Patient Relationship to Insured Coverage Start Date Coverage End Date [facility] Attn Claims Department [address] [place] [address] [phone] [id number] Susie Snow Self - patient is the insured 5 MED[address] [place] [address] [id number] Susie Snow Self - patient is the insured 5 [facility] Att[facility] Claims Department [address] [place] [address] [id number] Susie Snow Self - patient is the insured 5 Medical (General) History Medical History History ICD Code bipolar disorder 2 adhd combo type generalized anxiety disorder
--- OUTSIDE RECORDS SUMMARY | 2025-03-26 17:16 | XMS_ITS | Data Portability ---
Author Organization [facility] Address [address] [place] [address] [place] [address] Care Team Providers Care Bottom Buffer Name Role Phone OCONNORFAINA Primary Care Provider [phone] Assessment Encounter Date Assessment Date Assessment LastModified by Organization Details LastModified Time 09/18/2024 09/18/2024 Annual gynecological exam performed. Patient will come back in a year unless there are new symptoms. [email or web address] Not available 09/18/2024 16:56:46 Plan of Treatment Reminders Order Date Submit Date Provider Last Modified By Organization Details Last Modified Time Details Appointments None recorded. Lab urinalysis, dipstick 2024 025 [email or web address], [address], [place], [address], 17:12:57 unlisted lab - women's health swab, EDGARDO 2024 025 [facility] (Lab), [address], [place], [address], 10:22:28 culture, urine 2024 025 [facility] (Lab), [address], [place], [address], 5 10:22:29 pap, IG + HR HPV - HPV regardless but if HPV is positive need subtyping 16,18/45 2024 025 [facility] (Lab), [address], [place], [address], 15:50:44 Referral gastroenter ologist referral 2024 025 [facility] - Gastroenterol [facility]gy, [address], [address], [place], [address], 04:02:32 Procedures None recorded. Surgeries None recorded. Imaging US, pelvis [address], [address], [place], [address], 20:38:42 US, transvagina l [address], [place], [address], 20:38:42 US, pelvis [address], [place], [address], 20:56:22 US, transvagina l [address], [place], [address], 20:56:22 US, pelvis, complete 2024 025 [email or web address], [address], [place], [address], 5 12:56:25 MAMMO, screening, digital, bilateral 2024 025 [facility], [address], [address], [place], [address], 05:01:09 Medication Orders Slynd 4 mg (28) tablet 2024 025 [id number], [address] [facility], [place], [place], [id number], 09:19:43 Patient TargetsNo targets recorded. Patient InstructionsNo instructions recorded. 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 [address] [facility] [place] [address] Tel: CULTU RE ----- ----- ----- --- >100, 000 CFU/m l Enter ococc us faeca lis (Abno rmal) Amoxi cilli n PO or ampic illin IV are predi ctabl y relia ble for treat ment of enter ococc al cysti tis, inclu ding ampic illin -resi stant VRE, and may be consi dered as treat ment. Do not use for ampic illin -resi stant pyelo nephr itis or bacte remia . SUSCE PTIBI LITY ----- ----- ----- --- Enter ococc us faeca lis METHO D MICHAEL ----- ----- ---- ----- ----- ----- ----- --- AMPIC ILLIN <=2 ug/mL Susce ptibl e CIPRO FLOXA AISHA <=1 ug/mL Susce ptibl e NITRO FURAN TOIN <=32 ug/mL Susce ptibl e VANCO MYCIN 2 ug/mL Susce ptibl e Not Available [facility] (Lab) [address], [place], [address], 09/07/2024 02:18:34 09/05/19 25 09/04/2024 urina lysis , dipst ick Leukocytes ++ Not Available [facility] megan [address], [place], [address], 09/04/2024 17:40:01 09/05/19 25 09/04/2024 urina lysis , dipst ick Nitrite - Not Available [place] [address], [place], [address], 09/04/2024 17:40:01 09/05/19 25 09/04/2024 urina lysis , dipst ick Urobilinogen - Not Available [facility] [address], [place], [address], 09/04/2024 17:40:01 09/05/19 25 09/04/2024 urina lysis , dipst ick Protein trace Not Available [place] [address], [place], [address], 09/04/2024 17:40:01 09/05/19 25 09/04/2024 urina lysis , dipst ick pH 5 Not Available [place] [address], [place], [address], 09/04/2024 17:40:01 09/05/19 25 09/04/2024 urina lysis , dipst ick Specific Bertha 1.020 Not Available [facility] [address], [place], [address], 09/04/2024 17:40:01 09/05/19 25 09/04/2024 urina lysis , dipst ick Ketone - Not Available [place] [address], [place], [address], 09/04/2024 17:40:01 09/05/19 25 09/04/2024 urina lysis , dipst ick Bilirubin - Not Available [facility] dylan [address], [place], [address], 09/04/2024 17:40:01 09/05/19 25 09/04/2024 urina lysis , dipst ick Glucose - Not Available [place] [address], [place], [address], 09/04/2024 17:40:01 09/05/19 25 09/04/2024 urina lysis , dipst ick Appearance clear Not Available [facility] me[address], [place], [address], 09/04/2024 17:40:01 09/05/19 25 09/04/2024 urina lysis , dipst ick Color light yellow Not Available [place] [address], [place], [address], 09/04/2024 17:40:01 09/19/19 25 09/18/2024 IMAGE GUIDE D PAP AND HPV REGAR DLESS image guided Pap, HPV regardless of Pap result SEE RESULT S BELOW CASE REPOR T: Cytol ogy Gynec ologi sean Repor t Case: [id number] Autho riderick g Provi jeanne: Dermo dy, Cara , ANP, EQUIPMENT OILER Colle cted: 09/18 1630 Order ing Locat ion: [place] [facility] Recei unruly: 09/19 0141 First Scree n: Lucy Barron Rescr een: Justin Jane, CT Speci men: Scree neida Pap - Image d, Cervi x STATE MENT OF ADEQU ACY: Satis facto ry for evalu ation Trans forma tion zone compo nent absen t The absen ce of an endoc ervic al compo nent was confi rmed by an addit ional scree ner. ----- ----- ----- ----- ----- ----- ----- ----- ----- ----- ----- ----- ----- ----- ----- ----- ----- ---- FINAL DIAGN OSIS: Negat arianna for Intra epith elial Lesio n or Bibi glez (NIL) . Funga l organ isms morph ologi reyna consi stent with Radha da spp. Elect yue enriquez by Justin Jane, CT on 025 at 1446 CDT ----- ----- ----- ----- ----- ----- ----- ----- ----- ----- ----- ----- ----- ----- ----- ----- ----- ---- HPV RESUL TS: HPV mRNA E6/E7 : No HPV mRNA Detec kae NOTE: This high risk HPV mRNA assay detec ts fourt een high- risk HPV types (16, 18, 31, 33, 35, 39, 45, 51, 52, 56, 58, 59, 66, 68) witho ut diffe renti ation . COMME NT: This speci men was revie wed by a Cytot echno logis t and/o r Patho logis t (as indic ated in this repor t) after evalu ation using the Thinp rep Imagi ng Syste m. CLINI SEAN INFOR MATIO N: Menst rual Statu s: LMP (if appli cable ): Clini sean Histo ry/Pr eviou s Pap: Type of Neopl rickey (if appli cable ): Signi fican t Clini sean Findi ngs: Other Histo ry: Hormo kylie (if appli cable ): PAP EDUCA LEONIDES L NOTE: The Pap Test is a scree neida test with an inher ent false negat arianna rate. Liqui d-bas ed sampl ing may decre ase, but will not elimi edda, false negat arianna resul ts. A negat arianna resul t does not precl ude the prese nce and/o r devel opmen t of disea se, since the prese nce of abnor mal cells in the sampl e depen ds on the locat ion of the lesio n and sampl ing techn ique. Dede nued regul ar scree neida is the best metho d of cance r preve ntion . If repor kae cytol ogic findi ng do not corre late with physi sean and/o r histo rical findi ngs, furth er inves tigat ion is recom abram d, as clini reyna kaiser nted. Not Available [facility] (Lab) [address], [place], [address], 09/21/2024 15:50:44 09/27/19 25 09/26/2024 OVA 1 scan result See Adeola enriquez Result Not Available [facility] (Lab) [address], [place], [address], 09/29/2024 10:15:05 10/12/19 25 10/11/2024 urina lysis , dipst ick Leukocytes - Not Available [facility] [address], [place], [address], 10/11/2024 11:07:36 10/12/19 25 10/11/2024 urina lysis , dipst ick Nitrite - Not Available [place] [address], [place], [address], 10/11/2024 11:07:36 10/12/19 25 10/11/2024 urina lysis , dipst ick Urobilinogen - Not Available Candel[facility] kaplan [address], [place], [address], 10/11/2024 11:07:36 10/12/19 25 10/11/2024 urina lysis , dipst ick Protein trace Not Available [place] [address], [place], [address], 10/11/2024 11:07:36 10/12/19 25 10/11/2024 urina lysis , dipst ick pH 6 Not Available [place] [address], [place], [address], 10/11/2024 11:07:36 10/12/19 25 10/11/2024 urina lysis , dipst ick Specific Bertha 1.015 Not Available [facility] [address], [place], [address], 10/11/2024 11:07:36 10/12/19 25 10/11/2024 urina lysis , dipst ick Ketone - Not Available [place] [address], [place], [address], 10/11/2024 11:07:36 10/12/19 25 10/11/2024 urina lysis , dipst ick Bilirubin - Not Available [facility] rich[facility] [address], [place], [address], 10/11/2024 11:07:36 10/12/19 25 10/11/2024 urina lysis , dipst ick Glucose - Not Available [place] [address], [place], [address], 10/11/2024 11:07:36 10/12/19 25 10/11/2024 urina lysis , dipst ick Appearance clear Not Available Kye guzman [address], [place], [address], 10/11/2024 11:07:36 10/12/19 25 10/11/2024 urina lysis , dipst ick Color dark yellow Not Available [place] [address], [place], [address], 10/11/2024 11:07:36 11/21/1911/20/2024 WOMEN 'S HEALT H SWAB, EDGARDO bacterial vaginosis (bv), tma Positi ve negati ve abnormal This test detec ts ribos omal RNA from bacte vale assoc iated with bacte rial vagin osis (BV), inclu ding Lacto bacil randell (L. gasse ri, L. crisp atus and L. jense rashad), Gardn erell a vagin joe, and Atopo bium vagin ae by Trans cript ion-M ediat ed Ampli ficat ion (TMA) . A singl e quali tativ e resul t is repor kae based on instr ument softw are to deter mine BV posit arianna or negat arianna statu s. Not Available [facility] (Lab) [address] [place], [address], 11/23/2024 10:22:28 11/21/19 25 11/20/2024 WOMEN 'S HEALT H SWAB, EDGARDO jesus species, tma Positi ve negati ve abnormal Not Available [facility] (Lab) [address] [facility], [place], [address], 11/23/2024 10:22:28 11/21/19 25 11/20/2024 WOMEN 'S HEALT H SWAB, EDGARDO jesus glabrata, tma Negati ve negati ve Not Available [facility] (Lab) [address] [place], [address], 11/23/2024 10:22:28 11/21/19 25 11/20/2024 WOMEN 'S HEALT H SWAB, EDGARDO trichomonas vaginalis, tma Negati ve negati ve This assay tests for and diffe renti ates betwe en Radha da glabr rajendra, the Radha da speci es group (C. albic ans, C. tropi calis , C. parap adelita is, C. dubli layton is), and Trich omona s vagin joe by Trans cript ion-M ediat ed Ampli ficat ion (TMA) . Not Available [facility] (Lab) [address] [facility], [place], [address], 11/23/2024 10:22:28 11/21/19 25 11/20/2024 CULTU RE: URINE result report SEE RESULT S BELOW abnormal Test: Cultu re: Urine Speci men Sourc e: Urine - Clean Catch Speci men Type: Urine Speci men Date: 162 Resul t Date: 18 Resul t Statu s: Final resul t Abnor mal: Yes Resul maribellhaja Lab: [facility] [address] [facility] [address] Tel: CULTU RE ----- ----- ----- --- >100, 000 CFU/m l Citro bacte r mayer i [facility] SUSCE PTIBI LITY ----- ----- ----- --- Citro bacte r koser i METHO D MICHAEL ----- ----- ----- ----- ----- ---- ----- ----- ----- ----- ----- AMPIC ILLIN /SULB ACTAM <=8 ug/mL Susce ptibl e AZTRE ONAM <=4 ug/mL Susce ptibl e CEFAZ CIPRIANO <=2 ug/mL Susce ptibl e CEFEP SYLVIE <=2 ug/mL Susce ptibl e CEFTA ZIDIM E <=1 ug/mL Susce ptibl e CEFTR IAXON E <=1 ug/mL Susce ptibl e CIPRO FLOXA AISHA <=0.2 5 ug/mL Susce ptibl e GENTA MICIN <=2 ug/mL Susce ptibl e LEVOF LOXAC IN <=0.5 ug/mL Susce ptibl e MEROP ENEM <=1 ug/mL Susce ptibl e NITRO FURAN TOIN <=32 ug/mL Susce ptibl e PIPER ACILL IN/TA ZOBAC CHASE <=8 ug/mL Susce ptibl e TOBRA MYCIN <=2 ug/mL Susce ptibl e TRIME THOPR IM/WOODSON LFAME THOXA ZOLE <=2 ug/mL Susce ptibl e Not Available [facility] (Lab) [address], [place], [address], 11/23/2024 10:22:29 11/21/19 25 11/20/2024 urina lysis , dipst ick Leukocytes ++ Not Available [facility] me[address], [place], [address], 11/20/2024 17:12:22 11/21/19 25 11/20/2024 urina lysis , dipst ick Nitrite + Not Available [place] [address], [place], [address], 11/20/2024 17:12:22 11/21/19 25 11/20/2024 urina lysis , dipst ick Urobilinogen - Not Available [facility] rosaura [address], [place], [address], 11/20/2024 17:12:22 11/21/19 25 11/20/2024 urina lysis , dipst ick Protein trace Not Available [place] [address], [place], [address], 11/20/2024 17:12:22 11/21/19 25 11/20/2024 urina lysis , dipst ick pH 7 Not Available [place] [address], [place], [address], 11/20/2024 17:12:22 11/21/19 25 11/20/2024 urina lysis , dipst ick Specific Bertha 1.005 Not Available [facility] [address], [place], [address], 11/20/2024 17:12:22 11/21/19 25 11/20/2024 urina lysis , dipst ick Ketone - Not Available [place] [address], [place], [address], 11/20/2024 17:12:22 11/21/19 25 11/20/2024 urina lysis , dipst ick Bilirubin - Not Available [facility] rich[facility] [address], [place], [address], 11/20/2024 17:12:22 11/21/1911/20/2024 urina lysis , dipst ick Glucose - Not Available [place] [address], [place], [address], 11/20/2024 17:12:22 11/21/19 25 11/20/2024 urina lysis , dipst ick Appearance cloudy Not Available [facility] [address], [place], [address], 11/20/2024 17:12:22 11/21/1911/20/2024 urina lysis , dipst ick Color light yellow Not Available [place] [address], [place], [address], 11/20/2024 17:12:22 09/23/19 25 09/22/2024 , pelvi s No observ ation record ed. [facility] [address], [place], [address], 09/22/2024 17:51:22 09/23/1909/22/2024 US, trans vagin al No observ ation record ed. [facility] [address], [place], [address], 09/22/2024 17:51:30 09/23/1909/22/2024 US, pelvi s No observ ation record ed. [email or web address] [address], [place], [address], 09/25/2024 18:02:51 11/15/19 25 11/14/2024 US, pelvi s No observ ation record ed. [email or web address] [place] [address], [place], [address], 11/14/2024 17:52:21 11/15/19 25 11/14/2024 US, trans vagin al No observ ation record ed. [email or web address] [place] [address], [place], [address], 11/14/2024 17:52:45 11/15/19 25 11/14/2024 US, pelvi s No observ ation record ed. [email or web address] [address], [place], [address], 11/15/2024 10:20:22 Result Notes None recorded. Problems Name Problem SNOMED Code Status Onset Date Resolution Date Notes Provider Name and Address Organization Details Recorded Time Speciali zed medical examinat ion Completed 201103/07/2021 Gynecolo gical Examinat ion;Hadley rded Elsewher e: No Locat ion: [facility] S ource: [employer] Supervisor hai: N Fazal ce ID: [id number] Jose lable Time: 03:00:00 PM Lorna thurman [facility] 09:33:53 Screenin g for malignan t neoplasm of cervix Completed 201203/07/2021 Screenin g for malignan t neoplasm s of the cervix;R ecorded Elsewher e: No Locat ion: [facility] S ource: [employer] Supervisor hai: N Fazal ce ID: [id number] Jose lable Time: 02:00:00 PM Lorna thurman [facility] 1 09:33:44 Atypical squamous cells of undeterm ined signific ance on cervical Papanico laou smear [id number] Completed 201303/07/2021 Papanico laou smear of cervix with atypical squamous cells of undeterm ined signific ance (ASC-US) ;Recorde d Elsewher e: No Locat ion: [facility] S ource: [employer] Supervisor hai: Becka Diehl ce ID: [id number] Jose lable Time: 09:30:00 AM Lorna Randall [facility], [facility] 09:31:10 Vaginiti s and vulvovag initis Completed 201303/07/2021 Vaginiti s;Record ed Elsewher e: No Locat ion: [facility] S ource: [employer] Supervisor hai: Becka Diehl ce ID: [id number] Jose lable Time: 09:30:00 AM Lorna Randall [facility], [facility] 09:33:59 Adult health examinat ion Completed 201303/07/2021 ROUTINE MEDICAL EXAM;Rec orded Elsewher e: No Locat ion: [facility] S ource: [employer] Supervisor hai: Becka Diehl ce ID: [id number] Jose lable Time: 02:00:00 PM Lorna thurman, [facility] 09:30:55 Pregnanc y test negative [id number] Completed 201303/07/2021 Pregnanc y examinat ion or test, negative result;R ecorded Elsewher e: No Locat ion: [facility] S ource: [employer] Supervisor hai: Becka Diehl ce ID: [id number] Jose lable Time: 10:30:00 AM Lorna thurman, [facility] 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 09:30:47 Female genital organ symptoms [id number] Completed 201403/07/2021 Unspecif ied symptom associat ed with female genital organs;R ecorded Elsewher e: No Locat ion: [facility] S ource: [employer] Supervisor hai: N Rossyti ce ID: [id number] Jose lable Time: 11:00:00 AM Lorna Randall [facility], [facility] 09:32:10 Postcoit al bleeding [id number] Completed 201403/07/2021 Postcoit al bleeding ;Recorddylan d Elsewher e: No Locat ion: [facility] S ource: [employer] Supervisor hai: N Rossyti ce ID: [id number] Jose lable Time: 11:00:00 AM Lorna Randall [facility], [facility] 1 09:33:39 Genetic predispo sition Completed 201403/07/2021 Genetic risk of cancer;R ecorded Elsewher e: No Locat ion: [facility] S ource: [employer] Supervisor hai: N Rossyti ce ID: [id number] Jose lable Time: 10:00:00 AM Lorna thumran, [facility] 1 09:32:33 Dysfunct ional uterine bleeding Completed 201403/07/2021 Other disorder s of menstrua tion and other abnormal bleeding from female genital tract;Re corded Elsewher e: No Locat ion: [facility] S ource: [employer] Supervisor hai: N Rossyti ce ID: [id number] Jose lable Time: 10:00:00 AM Lorna thurman [facility] 1 09:32:06 Clinical finding Completed 201403/07/2021 Genetic suscepti bility to other malignan t neoplasm ;Recorde d Elsewher e: No Locat ion: [facility] S ource: [employer] Supervisor hai: N Rossyti ce ID: [id number] Jose lable Time: 10:00:00 AM Lorna Randall [facility], [facility] 1 09:32:03 Irregula r intermen strual bleeding [id number] Completed 201403/07/2021 Metrorrh agia;Rec orded Elsewher e: No Locat ion: [facility] S ource: [employer] Supervisor hai: N Rossyti ce ID: [id number] Jose lable Time: 08:30:00 AM Lorna Randall [facility], [facility] 1 09:33:30 Finding of pattern of menstrua l cycle Completed 201403/07/2021 Other specifie d irregula r menstrua tion;Rec orded Elsewher e: No Locat ion: [facility] S ource: [employer] Supervisor hai: N Rossyti ce ID: [id number] Jose lable Time: 08:30:00 AM Lorna thurman, [facility] 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 1 09:33:20 Increase d frequenc y of urinatio n [id number] Completed 201503/07/2021 Frequenc y of micturit ion;Hadley rded Elsewher e: No Locat ion: [facility] S ource: [employer] Supervisor hai: N Rossyti ce ID: [id number] Jose lable Time: 11:00:00 AM Lorna Stovertz cuca [facility] 1 09:33:24 Infectio n screenin g Completed 201503/07/2021 Encounte r for screenin g for oth infec/pa rastc diseases ;Recorde d Elsewher e: No Locat ion: [facility] S ource: [employer] Supervisor hai: N Rossyti ce ID: [id number] Jose lable Time: 01:00:00 PM Lorna Stovertz [facility] 1 09:33:28 Syphilis test finding [id number] Completed 201503/07/2021 Encntr screen for infectio ns w sexl mode of transmis s;Record ed Elsewher e: No [facility]: N Rossyti ce ID: [id number] Jose lable Time: 01:00:00 PM Lorna Stovertz [facility] 1 09:33:57 Blood leukocyt e number above referenc e range [id number] Completed 201603/07/2021 Elevated white blood cell count, unspecif ied;Hadley rded Elsewher e: No [facility]: [employer] Supervisor hai: N Rossyti ce ID: [id number] Jose lable Time: 08:30:00 AM Lorna Randall cuca [facility] [address] 09:33:[address] Concept Completed 201603/07/2021 Encntr for general adult medical exam w/o abnormal findings ;Recorde d Elsewher e: No [facility]at [facility]: N Rossyti ce ID: [id number] Jose lable Time: 08:30:00 AM Lorna Randall cuca [facility] 1 09:33:48 Abnormal uterine bleeding [id number] 100 Completed 201603/07/2021 Other specifie d abnormal uterine and vaginal bleeding ;Recorde d Elsewher e: No Locat ion: [facility] S ource: EHR Prac lamont ID: [id number] Jose lable Time: 09:00:00 AM Lorna Randall null, [facility] 1 09:30:50 Genetic predispo sition [id number] Completed 201603/07/2021 Genetic suscepti bility to malignan t neoplasm of endometr ium;Hadley rded Elsewher e: No Locat ion: [facility] S ource: [employer] Supervisor hai: N Practi ce ID: [id number] Jose lable Time: 09:00:00 AM Lorna Tonia [facility], [facility] 1 09:32:30 Acute vaginiti s [id number] Completed 201603/07/2021 Acute vaginiti s;Record ed Elsewher e: No Locat ion: [facility] S ource: [employer] Supervisor hai: N Practi ce ID: 0001 Jose lable Time: 01:30:00 PM Lorna thurman, [facility] 1 09:30:53 Vaginola bial hernia Completed 201603/07/2021 Other specifie d noninfla mmatory disorder s of vagina;R ecorded Elsewher e: No Locat ion: [facility] S ource: [employer] Supervisor hai: N Practi ce ID: 0001 Jose lable Time: 03:45:00 PM Lorna Randall [facility], [facility] 1 09:34:01 Human papillom avirus deoxyrib onucleic acid detected , high risk on cervical specimen [id number] Completed 201603/07/2021 Cervical high risk HPV DNA test positive ;Recorde d Elsewher e: No Locat ion: [facility] S ource: [employer] Supervisor hai: N Practi ce ID: 0001 Jose lable Time: 04:15:00 PM Lorna Randall cuca [facility] 09:33:01 Atypical squamous cells on cervical Papanico laou smear cannot exclude high grade squamous intraepi thelial lesion [id number] Completed 201603/07/2021 Atyp squam cell not excl hi grd intrepit h lesn cyto smr crvx;Rec orded Elsewher e: No Locat ion: [facility] S ource: [employer] Supervisor hai: N Practi ce ID: 0001 Jose lable Time: 11:00:00 AM Lorna Randall [facility] 09:32:01 Superfic ial pain on intercou rse [id number] Completed 201703/07/2021 Superfic ial (introit al) dyspareu erik;Prac lamont ID: 0001 Lorna Randall [facility] 09:33:55 Evaluati on finding Completed 201703/07/2021 Hematuri a, unspecif ied;Prac lamont ID: 0001 Lorna Randall [facility] 09:32:08 High grade squamous intraepi thelial lesion on cervical Papanico laou smear [id number] 107 Completed 201703/07/2021 High grade intrepit h lesion cyto smr crvx (HGSIL); Practice ID: 0001 Lorna Randall [facility] 09:32:50 Neoplasm of uterine cervix Completed 201703/07/2021 Moderate cervical dysplasi a;Practi ce ID: 0001 Lorna Randall [facility] 09:33:[address] Concept Completed 201803/07/2021 Encntr for grinder needle tip exam (general ) (routine ) w/o abn findings ;Practic e ID: 0001 Lorna Randall [facility] 1 09:33:[address] Concept Completed 201803/07/2021 Anxiety; Recorded Elsewher e: No Locat ion: [facility] S ource: [employer] Supervisor hai: N Fazal ce ID: 0001 Jose lable Time: 10:45:00 AM Lorna thurman [facility] 09:33:46 Notes:history abnormal pap a scus hpv/CIN2/ cervical hgsil Problem Notes None recorded. Procedures Surgical History Date Name Laterality Status Provider Name and Address Organization Details Recorded Time 09/19/19 25 Date of Last Pap Smear completed Susie Perez [facility] 10/03/2024 13:58:18 05/28/20 21 Colposcopy completed Kellie Rebollar CNM [address], [place], [address], [facility] 05/28/2021 17:44:58 05/28/20 21 Colposcopy completed Lorna Randall [facility] 05/28/2021 17:29:56 05/28/20 21 Colposcopy completed Lorna Randall [facility] 05/28/2021 17:31:19 10/20/19 18 LEEP completed Lorna Randall [facility] 01/23/2020 00:18:03 03/15/20 17 Colposcopy completed Lorna Randall [facility] 03/07/2021 17:57:08 10/09/19 17 Colposcopy completed Lorna Randall [facility] 03/07/2021 17:57:37 05/10/20 15 Colposcopy completed Lorna Randall [facility] 03/07/2021 17:58:14 03/05/20 15 endometrial biopsy completed Lorna Randall [facility] 03/07/2021 17:58:55 02/09/20 14 Colposcopy completed Lorna Randall [facility] 03/07/2021 17:58:36 Imaging Results None recorded. Procedure Notes None recorded. Medical Equipment None Reported. Allergies Allergen ID Allergen Name Allergen Category Reaction Reaction Severity Criticality Documentation Date Start Date Code Code System Note Provider Name and Address Organization Details Recorded Time 80355 Macrobid medicatio n abdominal pain severe Not available 07/31/20202020 11306 1 RxNorm Toni Gibson [facility] 11:41:17 04264 amoxicill in medicatio n Not available Not available Not available 09/20/2024 723 RxNorm Monica Toney [facility] 15:24:58 Medications Name Sig Start Date Stop Date Status Note LastModified by Organization Details LastModified Time azithromy aisha 250 mg tablet take 2 tablet (500MG) by oral route once daily for for 1 day then 1 tablet (250 mg) by oral route once daily for 4 days 09/04 completed Not Available Not Available Not Available nystatin 100,000 unit/gram topical ointment APPLY TO THE AFFECTED AREA(S) BY TOPICAL ROUTE 2 TIMES PER DAY 10/21 completed Not Available Not Available Not Available phenazopy ridine 200 mg tablet TAKE 1 TABLET BY MOUTH THREE TIMES A DAY NEEDED FOR PAIN FOR 6 DOSES 04/24 completed Not Available Not Available Not Available metronida zole 0.75 % (37.5 mg/5 gram) vaginal gel insert 1 applicat orful by vaginal route every day at bedtime for 5 nights 05/04 completed Not Available Not Available Not Available prednison e 20 mg tablet 08/04 completed Not Available Not Available Not Available fluoxetin e 10 mg tablet Take 10mg tablet PO daily coupled with 20mg tablet for total daily dose of 30mg. 11/24 completed Not Available Not Available Not Available Diflucan 150 mg tablet Take 1 tablet PO STAT and repeat in 48 hours 2024 active Not Available Not Available Not Avai lable methylphe nidate ER 54 mg tablet,ex tended release 24 hr TAKE 1 TABLET BY MOUTH EVERY DAY IN THE MORNING FOR 30 DAYS active Not Available Not Available No t Available metronida zole 500 mg tablet Take 1 tablet twice a day by oral route for 7 days. 2024 active Not Available Not Available Not Avai lable ciproflox acin 250 mg tablet Take 1 tablet every 12 hours by oral route for 3 days. 04/24 completed Not Available Not Available Not Available ciproflox acin 500 mg tablet Take 1 tablet every 12 hours by oral route for 5 days. 2024 active Not Available Not Available Not Avai lable sulfameth oxazole 800 mg-trimet hoprim 160 mg tablet take 1 tablet by oral route every 12 hours x 7 days 09/20 completed Not Available Not Available Not Available lamotrigi ne 25 mg tablet TAKE 1 TABLET BY MOUTH EVERY DAY FOR 15 DAYS,THE N 2 TABS DAILY FOR 15 DAYS active Not Available Not Available No t Available nystatin- triamcino lone 100,000 unit/gram -0.1 % topical ointment 08/04 completed Not Available Not Available Not Available alprazola m 0.5 mg tablet 07/13 completed Not Available Not Available Not Available amoxicill in 875 mg tablet Take 1 tablet every 12 hours by oral route for 5 days. 09/20 completed Not Available Not Available Not Available cephalexi n 500 mg capsule 05/28 completed Not Available Not Available Not Available fluoxetin e 20 mg tablet Take 1 tablet PO daily coupled with 10mg Tablet for a total daily dose of 30mg 11/24 completed Not Available Not Available Not Available triamcino lone acetonide 0.1 % topical ointment APPLY A THIN LAYER TO THE AFFECTED AREA(S) BY TOPICAL ROUTE 2 TIMES PER DAY 10/21 completed Not Available Not Available Not Available buspirone 10 mg tablet 09/04 completed Not Available Not Available Not Available lisinopri l 10 mg tablet 09/04 completed Not Available Not Available Not Available buspirone 7.5 mg tablet 09/04 completed Not Available Not Available Not Available dextroamp hetamine- amphetami ne ER 10 mg 24hr capsule,e xtend release 09/04 completed Not Available Not Available Not Available dextroamp hetamine- amphetami ne ER 30 mg 24hr capsule,e xtend release TAKE 1 CAPSULE BY MOUTH EVERY DAY IN THE MORNING active Not Available Not Available No t Available ondansetr on 4 mg disintegr ating tablet 11/20 completed Not Available Not Available Not Available fluoxetin e 20 mg capsule Take 1 capsule every day by oral route with meal(s) for 30 days. 11/24 completed Not Available Not Available Not Available fluticaso ne propionat e 50 mcg/actua tion nasal spray,rio pension 07/13 completed Not Available Not Available Not Available sertralin e 50 mg tablet 09/18 completed Not Available Not Available Not Available lamotrigi ne 100 mg tablet TAKE 1 TABLET BY MOUTH ONCE DAILY active Not Available Not Available No t Available dextroamp hetamine- amphetami ne 5 mg tablet TAKE 1 TABLET BY MOUTH ONCE A DAY FOR 30 DAYS 11/20 completed Not Available Not Available Not Available loratadin e 10 mg tablet 07/13 completed Not Available Not Available Not Available amoxicill in 875 mg-potass ium clavulana te 125 mg tablet 10/06 completed Not Available Not Available Not Available methylphe nidate ER 27 mg tablet,ex tended release 24 hr 09/18 completed Not Available Not Available Not Available dextroamp hetamine- amphetami ne ER 15 mg 24hr capsule,e xtend release TAKE 1 CAPSULE BY MOUTH EVERY DAY IN THE MORNING FOR 30 DAYS 11/20 completed Not Available Not Available Not Available dextroamp hetamine- amphetami ne ER 25 mg 24hr capsule,e xtend release TAKE 1 CAPSULE BY MOUTH EVERY DAY IN THE MORNING FOR 30 DAYS 11/20 completed Not Available Not Available Not Available escitalop talya 10 mg tablet take 1 tablet by oral route every day 10/21 completed Not Available Not Available Not Available escitalop talya 20 mg tablet TAKE 1 TABLET BY MOUTH EVERY DAY 09/04 completed Not Available Not Available Not Available atomoxeti ne 25 mg capsule TAKE 1 CAPSULE BY MOUTH ONCE DAILY 09/18 completed Not Available Not Available Not Available atomoxeti ne 60 mg capsule TAKE 1 CAPSULE BY MOUTH EVERY DAY IN THE MORNING 11/20 completed Not Available Not Available Not Available aripipraz ole 5 mg tablet 09/04 completed Not Available Not Available Not Available bupropion HCl XL 300 mg 24 hr tablet, extended release 09/04 completed Not Available Not Available Not Available bupropion HCl XL 150 mg 24 hr tablet, extended release 09/04 completed Not Available Not Available Not Available tinidazol e 500 mg tablet take 4 tablet by oral route every day with food 10/27 completed Prescrib ed Elsewher e: Yes Loca tion: [facility] odify By: amkuhyane Richardson ncounter DateTime : 01/28/20 04:15:00 PM Not Available Not Available Not Available nitrofura ntoin monohydra te/macroc rystals 100 mg capsule TAKE 1 CAPSULE BY MOUTH EVERY 12 HOURS WITH FOOD FOR 5 DAYS 04/24 completed Not Available Not Available Not Available atomoxeti ne 80 mg capsule TAKE 1 CAPSULE BY MOUTH EVERY DAY IN THE MORNING active Not Available Not Available No t Available atomoxeti ne 100 mg capsule TAKE 1 CAPSULE BY MOUTH EVERY DAY IN THE MORNING 11/20 completed Not Available Not Available Not Available lisdexamf etamine 50 mg capsule TAKE 1 CAPSULE BY MOUTH ONCE A DAY IN THE MORNING FOR 30 DAYS active Not Available Not Available No t Available lisdexamf etamine 30 mg capsule TAKE 1 CAPSULE BY MOUTH ONCE A DAY IN THE MORNING FOR 30 DAYS 11/20 completed Not Available Not Available Not Available Beyaz (28) 3 mg-0.02 mg-0.451 mg (24)/0.45 1 mg (4) tablet take 1 tablet by oral route every day 09/06 completed Prescrib ed Elsewher e: No Locat ion: [facility] odify By: amkuhyane Richardson ncounter DateTime : 08/17/19 08:30:00 AM Not Available Not Available Not Available Loryna (28) 3 mg-0.02 mg tablet TAKE 1 TABLET BY MOUTH EVERY DAY 2024 active Not Available Not Available Not Avai lable Trintelli x 10 mg tablet Take 1 tablet every day by oral route. active Not Available Not Available No t Available Aurovela Fe 1.5/30 (28) 1.5 mg-30 mcg (21)/75 mg (7) tablet Take 1 tablet every day by oral route. 05/28 completed Not Available Not Available Not Available Slynd 4 mg (28) tablet TAKE 1 TABLET DAILY 2024 active Not Available Not Available Not Avai lable Qelbree 200 mg capsule,e xtended release Take 1 capsule every day by oral route. active Not Available Not Available No t Available Auvelity 45 mg-105 mg tablet, extended release 09/04 completed Not Available Not Available Not Available Vitals Date Recorded Body height Body mass index (BMI) Body weight Systolic And Diastolic Provider Name and Address Organization Details Last Updated DateTime 09/18/2024 170.18 cm 20.4 kg/m2 28358.01 g 124/79 mm[Hg] [facility] 09/18/2024 17:02:35 Date Recorded Body height Body mass index (BMI) Body weight Systolic And Diastolic Provider Name and Address Organization Details Last Updated DateTime 10/03/2024 170.18 cm 19.9 kg/m2 43881.23 g 123/80 mm[Hg] Susie Perez [facility] 10/03/2024 13:57:59 Date Recorded Body height Body mass index (BMI) Body weight Systolic And Diastolic Provider Name and Address Organization Details Last Updated DateTime 11/20/2024 170.18 cm 20.3 kg/m2 26833.29 g 120/79 mm[Hg] [facility] 11/20/2024 17:10:32 Social History Question Answer Notes LastModified by Organizat ion Details LastModified Time Tobacco Smoking Status Never [facility]oker [facility] 07/13/2023 17:33:50 Do You Have An Advance Directive? No [email or web address] Information n ot available 04/04/2021 Are You Blind Or Do You Have Difficulty Seeing? No [email or web address] Information n ot available 04/04/2021 What Is Your Level Of Caffeine Consumption? Moderate Information not available 04/04/2021 In The 14 Days Before Symptom Onset, Have You Had Close Contact With A Laboratory-confirm ed COVID-19 While That Case Was Ill? No [email or web address] Information n ot available 04/04/2021 In The 14 Days Before Symptom Onset, Have You Had Close Contact With A Person Who Is Under Investigation For COVID-19 While That Person Was Ill? No Information not available 04/04/2021 Have You Been To An Area Known To Be High Risk For COVID-19? No [email or web address] Information not available 04/04/2021 Are You Deaf Or Do You Have Serious Difficulty Hearing? No [email or web address] Information not available 04/04/2021 What Type Of Diet Are You Following? REGULAR [email or web address] Information n ot available 04/04/2021 Which Illicit Or Recreational Drugs Have You Used? None Information not available 07/13/2023 Are There Any Guns Present In Your Home? No [email or web address] Information not available 04/04/2021 What Was The Date Of Your Most Recent Tobacco Screening? 05/28/2021 [email or web address] Information not available 07/13/2023 Do You Use Protection During Sex? No [email or web address] Information not available 04/04/2021 Do You Use Your Seat Belt Or Car Seat Routinely? Yes [email or web address] Information not available 04/04/2021 Do You Have Smoke And Carbon Monoxide Detectors In Your Home? Yes [email or web address] Information not available 04/04/2021 How Much Tobacco Do You Smoke? No [email or web address] Information not available 01/24/2020 Do You Use Sunscreen Routinely? No [email or web address] Information not available 04/04/2021 Have You Used IV Drugs? No [email or web address] Information not available 04/04/2021 Do You Have Difficulty Walking Or Climbing Stairs? No [email or web address] Information not available 07/13/2023 Sex: Unknown Functional Status Question Answer Note LastModified by Organizat ion Details LastModified Time Do you use any illicit or recreational drugs? No [email or web address] Information not available 04/04/2021 What is your level of alcohol consumption? Occasional [email or web address] Information not available 01/24/2020 Do you or have you ever used smokeless tobacco? Never used smokeless tobacco [email or web address] Information not available 07/13/2023 Are you able to walk independently without assistance or assistive devices? YESWOREST [email or web address] Information not available 04/04/2021 Are you able to care for yourself independently? 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 No [email or web address] Information not available 07/13/2023 Do you or have you ever used e-cigarettes or vape? Never used electronic cigarettes Information not available 07/13/2023 What is your exercise level? Heavy [email or web address] Information not available 04/04/2021 Mental Status Question Answer Note LastModified by Organization D etails LastModified Time Do you feel stressed (tense, restless, nervous, or anxious, or unable to sleep at night)? [id number] [email or web address] Information not available 04/04/2021 Family History Relationship Description Onset Age of this Age Resolved Age Notes LastModified by Organization Details LastModified Time Paternal Grandfather Diabetes mellitus Not available 01/22 00:12:16 Paternal Grandfather Malignant neoplasm of colon [email or web address] Not available 01/22 00:14:11 Paternal Aunt Malignant neoplasm of uterus [email or web address] Not available 01/22 00:12:39 Mother History of endometriosi s [email or web address] Not available 10/20 16:18:59 Mother Family history of malignant neoplasm of endometrium [email or web address] Not available 16:18:59 Mother Cyst of ovary [email or web address] Not available 10/20 16:18:59 Paternal Grandmother Heart disease [email or web address] Not available 01/22 00:14:27 Medical History Condition Response Allergies (Food, seasonal, environmental ) N Other Y Breast Cancer N Drug/Latex Allergies/Reactions Y Blood Transfusion N Dermatologic Disorders N Lung Disease N Defects or Inherited Disease N Breast Problem N Gestational Diabetes N Hematologic disorders N Anesthesia Complications N History of STI Y Deep Vein Thrombosis N Polycystic ovary syndrome N Anxiety Disorder N Autoimmune disease N Arthritis N Infertility N Polyps N Acid Reflux (GERD) N History of abnormal pap Y Cancer N Stroke N Varicosities N Neurologic/Epilepsy N Endometriosis N High Cholesterol N Headaches N Fibromyalgia N Kidney Disease N Heart Problems N Kidney or Bladder Problems N Thyroid Problems N GI Problems N Eating Disorder N Anemia N Art (IVF or FET) N Psychiatric Illness N Ovarian Cancer N Diabetes N Pulmonary (TB, Asthma) N Hepatitis/Liver Disease N No Past Medical History N Eczema N Urinary Tract Infection N Abuse/Domestic Violence N Asthma N Trauma/Violence N Depression/ depression N Heart Disease N Pre-Eclampsia N Hypertension Y Osteoporosis N Thrombophilias N Gynecological History Statement/Question Response Date of Last Mammogram Flow Light Date of LMP 07/22/2023 N Was last menstrual period normal Y STIs/STDs Y Abnormal Pap Yes On BCP's at Conception? N HPV Vaccine N Colposcopy 05/28/2021 Duration of Flow (days) 3 Current Control Method BCPs Age at First Child 20 Are cycles usually normal N Sexually Active? Y Menses Monthly N Age of first menstrual cycle 13 Date of Last Pap Smear 09/18/2024 Sexual Problems? N LMP Approximate N 01/27/2017 Obstetrics History GPAL:G 3 P 2 0 1 2 Type Value Full Term 2 Spontaneous 1 Living 2 Total 3 Past Encounters Encounter ID Performer Location Encounter Start Date Encounter Closed Date Diagnosis/Indication Diagnosis SNOMED-CT Code Diagnosis ICD10 Code Diagnosis IMO Codes Diagnosis Note [id number] Kellie Rebollar CNM [place] [address],[facility] [place] [address] 01/23/2020 09:33:15 01/23/2020 10:03:20 Gynecologic examination 27024474 Z01.419 [id number] Rhiannon Moe CNM [place] [address],[facility] [place] [address] 07/30/2020 17:44:51 07/31/2020 16:49:35 Urinary symptoms 983398731 R39.9 [id number] Rhiannon Moe CNM [place] [address],[facility] [place] [place] [address] 10/14/2020 17:40:22 10/16/2020 00:37:34 Dysuria 53568139 R30.9 [id number] Kellie Rebollar [facility] [address],[place] [address] 04/04/2021 14:22:52 04/04/2021 15:13:18 Gynecologic examination 13344753 Z01.419 if tsh wnl change ocp Anxiety 24741364 F41.9 [id number] Denisse Berry [facility] [address],[place] [address] 05/30/2022 10:45:22 05/30/2022 12:32:03 Gynecologic examination 29231487 Z01.419 Suggested Calcium with Vitamin D 1200-1500m g daily. Patient advised to get an annual flu shot in the fall and she could obtain at [facility] or [facility] care clinic. Also to obtain TDap vaccinatio n if you have not had one in the last 10 years. Recommend yearly mammograms . Encouraged monthly self breast exams. Encourage safe sexual practices, to use condoms and limit partners if not already in a monogamous relationsh ip. Engage in daily exercise of low impact aerobic exercise 45-60 minutes 4-5 times weekly. Avoid tobacco and illicit drugs as well as using moderation with alcohol intake less than 1-2 8 oz beverages daily. This lifestyle behavior pattern will lead to less health conditions and longer life span. If BMI greater than 25 weight watchers or dietary consult advised. All questions have been answered. Patient appears to understand informatio n, but if you have any questions please call or respond to this email. Pap/hpv sentSTD Screen sentGeneti c Screen (completed )Colon Screen-f/u with PCPDexa [facility] PCP Faustino ordered Premenstru al dysphoric disorder 992850 F32.81 HappyRF x 1yr sent [id number] Kellie Rebollar [facility] [address],[place] [address] 05/28/2021 17:08:36 05/28/2021 18:09:59 Human papillomavirus deoxyribonucleic acid detected, high risk on cervical specimen 301498617 R87.810 [id number] Kellie Rebollar [facility] [address],[place] [address] 09/12/2021 12:26:17 09/12/2021 13:01:18 Urinary symptoms 465952245 R39.9 [id number] Lois Rajput [facility] [address],[place] [address] 11/10/2021 14:11:42 11/10/2021 15:14:39 Urinary symptoms 051399399 R39.9 Acute urin elba tract infection 983500305 N39.0 Urinary burning and frequency x 2-3 days. Has a hx of recurrent UTI's.Usama rgic to macrobid. States Cipro is only antibiotic that works for her.UA today with 2+ leuks, 3+Blood. Will send for culture.Gi jefferson her hx of recurrent UTI's would like for her to see urologist. Referral sent.BP today 136/88, would like for her to schedule for repeat BP check and contracept ion management appointmen t. If her BP is elevated she needs to switch to progestin only method. Time spent with the patient was 30 minutes Recurrent urinary tract infection 207041656 N39.0 [id number] Kellie Rebollar [facility] [address],[place] [address] 10/02/2022 11:57:33 10/02/2022 12:35:50 Bacterial vaginosis 563062446 N76.0 Anxiety 13624556 F41.9 discussed only for short-term use, addictive medication , can increase lexapro if neededany suicidal thoughts to ED. xanax x, copy in chart f/u wwe [id number] Marcos Green MD [place] [address],[place] [address] 11/26/2022 17:32:01 11/26/2022 18:22:41 Urgent desire to urinate 85140124 R39.15 [id number] Denisse Berry [facility] [address],[place] [address] 07/13/2023 17:33:38 07/14/2023 09:19:37 Gynecologic examination 65009260 Z01.419 Z11.51 Suggested Calcium with Vitamin D 1200-1500m g daily. Patient advised to get an annual flu shot in the fall and she could obtain at [facility] or [facility] care clinic. Also to obtain TDap vaccinatio n if you have not had one in the last 10 years. Recommend yearly mammograms . Encouraged monthly self breast exams. Encourage safe sexual practices, to use condoms and limit partners if not already in a monogamous relationsh ip. Engage in daily exercise of low impact aerobic exercise 45-60 minutes 4-5 times weekly. Avoid tobacco and illicit drugs as well as using moderation with alcohol intake less than 1-2 8 oz beverages daily. This lifestyle behavior pattern will lead to less health conditions and longer life span. If BMI greater than 25 weight watchers or dietary consult advised. All questions have been answered. Patient appears to understand informatio n, but if you have any questions please call or respond to this email. Pap/hpv due Screen sentGeneti c Screen (completed )Colon Screen-PCP Dexa Screen naRoutine Labs will let PCPMammo ordered Screening mammography 24 [id number] Z12.31 Body mass index 25-29 - overweight [id number] Z68.27 Would like to lose 10-20lbsHa s been making significan t dietary changes and unable to lose more than 5lbs.Exerc ising 4-5 day/wkVery frustrated . Elevated blood-pressure reading without diagnosis of hypertension [id number] R03.0 Elevated BP x 2 readingsNe g H/A, chest pain/sob, dizziness. N/V+broke out in red splotches during BP readings; seemed to come on with anxiety/st ress.I have advised PCP referral for further evaluation .She agrees & will contact them for appt emmy. Patient is to contact office or go to nearest ED/Urgent care if fever >/= 100.1, pain, excessive bleeding, unusual drainage or swelling in area of concern; or experienci ng worsening sx's or new onset of concerning sx's. Understand ing verbalized . All questions answered to patient satisfacti on. Vaginitis [id number] N76.0 Suspect bacterial offset which is causing tenderness /swelling/ irritation .Rx sentSTD screen sent as precaution -but monogamous Contracept ion care management [id number] Z30.9 Switch to POP until BP is evaluated and managed. [id number] Denisse Berry [facility] [address],[place] [address] 08/04/2023 17:35:40 08/04/2023 18:18:02 Screening for malignant neoplasm of cervix [id number] Z12.4 Here today for pap smear testing.Un able to perform last exam due to labial tear/infec tion.Speci men sent Time spent in visit is a total of 15 mins with at least 50% of visit consisting of counseling and review of plan of care. [id number] Denisse Berry [facility] [address],[place] [address] 10/22/2023 13:43:29 10/22/2023 14:19:11 Mixed anxiety and depressive disorder [id number] F41.8 Here today to discuss treatment for anxiety/de pression.W e discussed trial of prozac for these conditions .We agreed to RTO x 4wks medication check. Counseled on r/b's, most common side effects of this therapy with instructio ns to stop medication with any significan t abnormal change in mood especially with thoughts of suicide/se lf-harm/kaufman rm to others. Understand ing verbalized . Time spent in visit is a total of 25 mins with at least 50% of visit consisting of counseling and review of plan of care. [id number] Denisse Berry [facility] [address],[place] [address] 11/18/2023 18:05:34 11/19/2023 07:33:21 Mixed anxiety and depressive disorder 514251203 F41.8 Patient is here today for a medicaton check of prozac 20mg. She voices goals of therapy have been met by 75% with use of this therapy. She denies neg side effects. She is eating, drinking, sleeping well; moods are stable, neg SI/HI. We agreed to increase prozac 30mg daily to see if we can get more positive response for anxiety;no ticing helping with MDD at this time. Appropriat e to continue this medication .RTO x 4-6wks med check (wants to see Kellie Elliot if she can). Time spent in visit is a total of 21 mins with at least 50% of visit consisting of counseling and review of plan of care. Counseled on medication R/B's, Most common side effects, & use. All questions were answered to patient satisfacti on. Hypertensive disorder 38 934991 I10 Going to see her PCP to change current BP medication ; it is causing too many side effects. [id number] Kellie Rebollar CNM [place] [address],[place] [address] 02/24/2024 12:44:38 02/24/2024 13:10:21 Venereal disease screening 129342076 Z11.3 Vaginal discharge 241462 006 N89.8 Yeast detected 523742058 R89.5 [id number] Marcos Green MD [place] [address],[place] [address] 09/04/2024 17:12:35 09/04/2024 17:39:57 Urinary symptoms 488319702 R39.9 Patient presents with symptoms of UTI.Urinal ysis dipstick and urine culture sent.Advis ed to drink clear fluids, Tylenol for pain and take prescribed medication s as instructed .Patient encouraged to follow up within 1 week if not improving. Patient to RTO for WWE and pap smear. [id number] Marcos Green MD [place] [address],[place] [address] 09/18/2024 16:54:24 09/18/2024 17:56:04 Contraception care management 985703698 Z30.9 Happy with BC pills. Risks/bene fits reviewed.R efills sent x one year. Gynecologi c examination 73982240 Z01.419 Annual gynecologi sean exam performed. Patient will come back in a year unless there are new symptoms. Suggest Calcium with Vitamin D if not eating in diet. Patient advised to get annual flu shot. Recommend yearly physicals and perform monthly breast exams. Genetic testing is available for patients with family history of cancer. Engage in safe sexual practices, use condoms. Encouraged to have daily exercise. Avoid tobacco and illicit drugs, moderation of alcohol. If BMI greater than 25 dietary consult advised. If you have any questions please call or email. 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 Recommende d prompt GI referral for colorectal cancer screening, pelvic ultrasound , and mammogram. GI referral sent to [facility]. Chronic constipation 236 498233 K59.09 Discussed high-fiber diet and starting Miralax daily to help relieve chronic constipati on.Increas e water intake to at least 64 ounces daily. 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 She had a pelvic ultrasound . Her ultrasound shows no endometria l findings. There is a cystic structure with some irregulari ty to it. We discussed those findings. We agreed to repeat ultrasound in 6 weeks and discuss those results. spent more than 20 minutes on her care in total. We discussed Jones syndrome, ovarian cyst -etiology, natural history, treatment thereof. Talked about follow-up in detail. We talked about tumor markers. [id number] Marcos Green MD [place] [address] [address] 11/14/2024 16:18:25 11/14/2024 17:15:23 Cyst of ovary 39036549 N83.292 [id number] . 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 She had a pelvic ultrasound . Her ultrasound shows no endometria l findings. There is a cystic structure with some irregulari ty to it. We discussed those findings. We agreed to repeat ultrasound in 6 weeks and discuss those results. spent more than 20 minutes on her care in total. We discussed Jones syndrome, ovarian cyst -etiology, natural history, treatment thereof. Talked about follow-up in detail. We talked about tumor markers. [id number] Marcos Green MD [place] [address] [address] 11/20/2024 17:00:36 11/20/2024 17:20:46 Acute urinary tract infection [id number] N39.0 [id number] Health Concerns Section Related Observation LastModified by Organization Detai ls LastModified Time None Recorded Concern Status LastModified by Organization Details LastModified Time None Recorded Advance Directives Directive N: Payers Insurance Date Sequence Insurance Name Policy Number Policy Montoya Covered Member ID Montoya Member ID Guarantor Name 03/06/2025 1 [employer] (HMO) [employer] Susie Snow [id number] Susie Snow 12/19/2024 1 *SELF PAY* Ti sidney Snow 03/06/2025 1 [facility] PRIOR TO 12/19/2020 (MEDICAID REPLACEMENT - HMO) Susie Velasco [id number] Susie Snow 03/06/2025 1 [facility] - DOS ON OR AFTER 20 (MEDICAID REPLACEMENT - HMO) Susie Velasco [id number] Susie Snow 03/06/2025 1 [facility] ON OR AFTER 12/19/20 (MEDICAID REPLACEMENT - HMO) Susie Velasco [id number] Susie Snow 03/06/2025 1 [facility] - DOS ON OR AFTER 20 (MEDICAID REPLACEMENT - HMO) Susie Velasco [id number] Susie Snow 03/06/2025 1 [facility] [id number] Susie Snow [id number] Susie Snow Notes Date Note Type Note Provider Name and Address Organization Details Recorded Time 5 text/html Annual GYNReported by PatientGenitourinary symptomsFor urinary symptoms, patient reportsno hematuriaandno incontinence. For vulva, patient reportsno genital lesion. For vagina, patient reportsnormal vaginal discharge. For menstrual cycle, (no cycles on slynd).Breast symptomsFor breast, patient reportsno breast pain,no breast lump, andno nipple discharge.ContraceptionFo r current contraception, patient reportssatisfied with current contraceptionandoral contraceptives.Endocrine symptomsFor sexual complaints, patient reportsno sexual complaints,no pain during intercourse, andnormal libido. For menopausal symptoms, patient reportsno menopausal symptomsandnormal vaginal lubrication.Psychological symptomsFor psychological symptoms, patient reportsno depression,no anxiety, andno pmdd.Preventative measuresFor preventive measures, patient reportsencourage self breast examination,encourage regular exercise,encourage no tobacco use, andencourage regular mammograms starting age 40. Patient presents for annual well woman exam. 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 Patient states that she has never seen GI.Patient reports chronic constipation, only has bowel movements q2-3 days with hard stool. Denies blood in stool. CARA ROBERTS NP [address], [place], [address], [facility] 09/18/2024 17:55:19 5 text/html . 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 She had a pelvic ultrasound. Her ultrasound shows no endometrial findings. There is a cystic structure with some irregularity to it. We discussed those findings. We agreed to repeat ultrasound in 6 weeks and discuss those results. spent more than 20 minutes on her care in total. We discussed Jones syndrome, ovarian cyst -etiology, natural history, treatment thereof. Talked about follow-up in detail. We talked about tumor markers. Marcos Green MD [address], [place], [address], [facility] 10/03/2024 14:24:30 OBGyn Episode Ob Episode Information Episode Created Date Number of Fetuses Patient Bloodtype Patient rh Status Prepregnancy Weight lbs Domestic Partner Domestic Partner Phone Father Name Float Phlebotomist Status 01/24/20 20 1 CLOSED Fetus Data First Name Last Name Admitted to NICU Weight (g) Sex Living Outcome Pediatric Complications Fetus ID Race Codes Race Delivery Type , Spontane ous [id number] Nba Calculation Initial Nba Date Initial Exam Date Initial Exam Provider Initial Ultrasound Date Last Menstrual Period Date Ultra Sound Weeks Gestation 0 Eighteen To Twenty Week Nba Update Ultra Sound Date Fundal Height At Umbil Quickening Date Ultra Sound Latest Weeks Gestation Final Nba Confirmed By Final Nba Confirmed Date Final Nba Date Ultra Sound Latest Days Gestation 0 0 Menstrual History Last Menstrual Date Menses Monthly On Bcp Conception Prior Menses Frequency Hcg Plus Date Menarche Onset Age Delivery Information Delivery Date Delivery Type Labor Anesthesia Weeks Gestation Incision Type Labor Labor Length Hrs Delivered By Post Complications Tubal Sterilization Discharge Date Comments 9 1998 miscarria ge Discharge Information Feeding Method Contraceptive Method Maternal HG B and HCT Levels Ob Episode Information Episode Created Date Number of Fetuses Patient Bloodtype Patient rh Status Prepregnancy Weight lbs Domestic Partner Domestic Partner Phone Father Name Float Phlebotomist Status 01/24/20 20 1 CLOSED Fetus Data First Name Last Name Admitted to NICU Weight (g) Sex Living Outcome Pediatric Complications Fetus ID Race Codes Race Delivery Type 3628.73 6 F Full Term 3559 Vaginal Delivery Nba Calculation Initial Nba Date Initial Exam Date Initial Exam Provider Initial Ultrasound Date Last Menstrual Period Date Ultra Sound Weeks Gestation 0 Eighteen To Twenty Week Nba Update Ultra Sound Date Fundal Height At Umbil Quickening Date Ultra Sound Latest Weeks Gestation Final Nba Confirmed By Final Nba Confirmed Date Final Nba Date Ultra Sound Latest Days Gestation 0 0 Menstrual History Last Menstrual Date Menses Monthly On Bcp Conception Prior Menses Frequency Hcg Plus Date Menarche Onset Age Delivery Information Delivery Date Delivery Type Labor Anesthesia Weeks Gestation Incision Type Labor Labor Length Hrs Delivered By Post Complications Tubal Sterilization Discharge Date Comments 1 Discharge Information Feeding Method Contraceptive Method Maternal HG B and HCT Levels Ob Episode Information Episode Created Date Number of Fetuses Patient Bloodtype Patient rh Status Prepregnancy Weight lbs Domestic Partner Domestic Partner Phone Father Name Float Phlebotomist Status 01/24/20 20 1 CLOSED Fetus Data First Name Last Name Admitted to NICU Weight (g) Sex Living Outcome Pediatric Complications Fetus ID Race Codes Race Delivery Type 3770.25 6704 M Full Term 3558 Vaginal Delivery Nba Calculation Initial Nba Date Initial Exam Date Initial Exam Provider Initial Ultrasound Date Last Menstrual Period Date Ultra Sound Weeks Gestation 0 Eighteen To Twenty Week Nba Update Ultra Sound Date Fundal Height At Umbil Quickening Date Ultra Sound Latest Weeks Gestation Final Nba Confirmed By Final Nba Confirmed Date Final Nba Date Ultra Sound Latest Days Gestation 0 0 Menstrual History Last Menstrual Date Menses Monthly On Bcp Conception Prior Menses Frequency Hcg Plus Date Menarche Onset Age Delivery Information Delivery Date Delivery Type Labor Anesthesia Weeks Gestation Incision Type Labor Labor Length Hrs Delivered By Post Complications Tubal Sterilization Discharge Date Comments 4 Discharge Information Feeding Method Contraceptive Method Maternal HG B and HCT Levels
[2025-03-26 18:00] LABS: Hematocrit 36.6 % (37.0-47.0); Hemoglobin 12.3 g/dL (12.0-15.0); Immature Granulocyte Percent A 0.3 % (0-0.5); Lymphocytes Absolute Auto 3.61 K/mm3 (0.9-3.2); Mean Corpuscular HGB Conc 33.6 g/dl (32-36); Mean Corpuscular Hemoglobin 30.7 pg (26-34); Mean Corpuscular Volume 91.3 fl (80-100); Nucleated Red Blood Cells Absolute Auto 0.000 K/mm3 (0.0-0.012); Nucleated Red Blood Cells Perc 0.0 % (0.0-0.2); Platelet Count Result 282 k/mm3 (150-375); Red Blood Count 4.01 M/mm3 (4.2-5.4); White Blood Count 9.7 K/mm3 (4.5-10.0)
[2025-03-26 18:18] LABS: Alanine Aminotransferase 18 U/L (6-35); Albumin Level 4.7 g/dL (3.5-5.1); Alkaline Phosphatase 54 U/L (38-126); Anion Gap 9 mmol/L (4-12); Aspartate Amino Transferase 29 U/L (14-36); Bilirubin,Total 0.4 mg/dL (0.2-1.3); Blood Urea Nitrogen 13 mg/dL (7-17); Calcium 9.2 mg/dL (8.4-10.2); Carbon Dioxide 24 mmol/L (22-30); Chloride 101 mmol/L (98-107); Estimated Glomerular Filt Rate > 60; Glucose 94 mg/dL (65-110); Potassium 4.4 mmol/L (3.4-5.0); Sodium 134 mmol/L (137-145); Total Protein 7.6 g/dL (6.3-8.2)
[2025-03-26 18:26] LABS: Lithium 0.4 mmol/L (0.6-1.2)
[2025-03-26 18:52] LABS: Free T4 Free Thyroxine 0.98 ng/dL (0.78-2.19)
[2025-03-26 18:53] LABS: Thyroid Stimulating Hormone 3.280 uIU/mL (0.465-4.680)
== END 2025-03-26 17:09 | disposition home or self-care (01) ==
LOC: ANHLAB 17:13
PROVIDERS: PCP Nurse Practitioner Family
DX: F31.81 Bipolar II disorder (principal)
CPT/HCPCS: 36415; 80053; 80178; 84439; 84443; 85025